=== PATIENT | female | born 1935 | race Caucasian/White ===

== ENCOUNTER 2017-07-21 16:23 | Inpatient (IN) | payer MEDICARE, SELFPAY ==
[2017-07-21] VITALS (9 sets, daily range): BP systolic 135–175; BP diastolic 58–120; PULSE 75–92; RESP 18–26; TEMP 27.7–37; O2SAT 82–98; BMI 43.2; BMI 41.9; BMI 41.1
--- NOTE | 2017-07-21 17:18 | PC.NURSE ---
Triage nurse called me to BS because of SPO2 86-89 w/o chronic lung disease, BP elevated and with positive flu A. Pt appears labored. Discussed possible differentials, [facility] guidelines and the need to transfer to ER. Pt agreeable. Report has already been called to Deborah. Bed 7 available.
[2017-07-21 17:19] LABS: UTC Influenza A Antigen Positive (Negative); UTC Influenza B Antigen Negative (Negative)
[2017-07-21 17:19] LABS: UTC Strep Screen (Rapid) Negative (Negative)
--- NOTE | 2017-07-21 17:21 | XR_ITS ---
XR chest portable COMPARISON: PA and lateral chest 01/27/2014 HISTORY: Chest pain, low oxygen saturation, cough TECHNIQUE: Portable upright chest FINDINGS: The patient is markedly obese however this is a fairly good inspiration and the lung woodson are grossly clear of infiltrate. There is gross generalized cardio megaly with biventricular enlargement with is no evidence of failure. IMPRESSION: Gross generalized cardiomegaly, there is a somewhat globular configuration to the cardiac silhouette raising the possibility of cardiomyopathy versus pericardial effusion and suggest clinical correlation.
--- NOTE | 2017-07-21 17:39 | HMH.EDGENADL ---
ED Disposition Clinical Impression: Influenza A, Hypoxia, Acute bronchospasm, Dehydration, Vomiting Disposition: Still a Patient Condition on Discharge: Fair Referrals: Guido Greer MD [Primary Care Provider] - - Critical Care Critical Care Time: Yes Attestation: On 07/21/17, the high probability of a clinically significant, sudden or life threatening deterioration of the following system(s) required my full and direct attention, intervention and personal management. The time I documented below is in addition to time spent performing reported procedures but includes the following listed in this critical care notation. Total Critical Care Time: 40 Vital system(s) involved:: Respiratory Failure My critical care processes included: Assessment & monitoring of V/S, Initial and Re-exams, Data Review/Interpretation, Coordinating Care, Medication Orders and management, Documentation Medical Decision Making Vital Signs: 07/21/17 17:08 07/21/17 17:29 07/21/17 17:32 Temperature 98.6 F 98.6 F 82 F L Temperature Source Oral Oral Oral Pulse Rate Pulse Rate [Right Brachial] 90 90 79 Respiratory Rate 20 26 H 24 Blood Pressure [Right Arm] 146/114 146/114 175/120 Blood Pressure Mean [Right Arm] 124 124 138 Blood Pressure Source [Right Arm] Automatic Cuff Automatic Cuff Automatic Cuff Blood Pressure Position [Right Arm] Sitting Sitting Sitting 02 Sat by Pulse Oximetry 86 L 86 L 82 L Oxygen Delivery Method Room Air Room Air Room Air 07/21/17 18:08 Temperature Temperature Source Pulse Rate 90 Pulse Rate [Right Brachial] Respiratory Rate Blood Pressure [Right Arm] Blood Pressure Mean [Right Arm] Blood Pressure Source [Right Arm] Blood Pressure Position [Right Arm] 02 Sat by Pulse Oximetry Oxygen Delivery Method - Lab Data Lab Results 07/21/17 16:54: Strep Scn Rapid Clinic Negative 07/21/17 17:07: Influenza Type A Ag Positive A, Influenza Type B Ag Negative 07/21/17 17:40: Sodium 142, Potassium 3.9, Chloride 105, Carbon Dioxide 31, Anion Gap 9.9, BUN 18, Creatinine 1.63 H, Estimated Creat Clear 26, Estimated GFR 30 L, Est GFR ( Amer) 37 L, Glucose 128 H, Calcium 8.7, Total Bilirubin 0.5, AST 15, ALT 14, Alkaline Phosphatase 78, Total Protein 6.3 L, Albumin 3.2 L, Globulin 3.1, Albumin/Globulin Ratio 1.0 L 07/21/17 17:40: Total Creatine Kinase 150, CK-MB (CK-2) < 0.5, CK-MB (CK-2) Rel Index 0.3, Troponin I < 0.02 07/21/17 17:40: WBC 3.5 L, RBC 3.84 L, Hgb 11.6 L, Hct 36.4 L, MCV 94.9, MCH 30.3, MCHC 31.9, RDW 14.4, Plt Count 174, MPV 8.6, Neut % (Auto) 77.5, Lymph % (Auto) 12.8, [place] % (Auto) 5.3, Eos % (Auto) 4.0, Baso % (Auto) 0.6, Neut # (Auto) 2.7, Lymph # (Auto) 0.4 L, [place] # (Auto) 0.2, Eos # (Auto) 0.1, Baso # (Auto) 0.0 Result diagrams: 07/21/17 17:40 07/21/17 17:40 Orders (Tests/Meds): ED MEDICATIONS Generic Name Dose Route Start Last Admin Trade Name Freq PRN Reason Stop Dose Admin Sodium Chloride 1,000 mls @ 100 mls/hr 07/21/17 18:30 Sod Chloride 0.9% 1000ml Bag IV 08/20/17 18:29 .Q10H [facility] Discontinued Medications Generic Name Dose Route Start Last Admin Trade Name Freq PRN Reason Stop Dose Admin Albuterol/Ipratropium 3 ml 07/21/17 18:08 07/21/17 18:12 Duoneb 3ml Neb IH 07/21/17 18:09 3 ml ONCE ONE Administration Ondansetron HCl 4 mg 07/21/17 18:16 Zofran 4mg/2ml Vial IV 07/21/17 18:17 ONCE ONE Oseltamivir Phosphate 75 mg 07/21/17 18:12 Tamiflu 75mg Capsule PO 07/21/17 18:13 ONCE ONE ORDERS Category Date Time Status Chest XR 2 view (NOT portable) [XR chest 2V] Stat Exams 07/21/17 17:51 Taken Lactic Acid Stat Lab 07/21/17 17:40 Ordered Blood Culture Stat Micro 07/21/17 17:40 Received Strep Screen Confirmation Stat Micro 07/21/17 16:54 Received Arterial Blood Gas Routine RT 07/21/17 17:49 Received Arterial Blood Gas Stat RT 07/21/17 17:40 Ordered - Radiology Data #1 Image(s): Chest
--- NOTE | 2017-07-21 17:51 | XR_ITS ---
XR chest 2V COMPARISON: PA and lateral chest 01/25/2014 HISTORY: Cough and congestion TECHNIQUE: PA and lateral chest FINDINGS: The lung woodson are well expanded and appear clear of infiltrate. There is minimal scarring or atelectasis at the left base. There is marked aortic tortuosity of the mid and lower thoracic aorta and this was noted previously but has shown interval progression from the previous study. There is borderline cardiomegaly without evidence of failure. There is no pleural fluid. IMPRESSION: Marked aortic tortuosity, is the patient hypertensive? No definite acute chest pathology noted
[2017-07-21 18:04] LABS: Basophils % 0.6 % (0.1-2.0); Eosinophils # 0.1 K/mm3 (0.0-0.4); Hematocrit 36.4 % (37.0-47.0); Hemoglobin 11.6 g/dL (12.2-16.2); Lymphocytes # 0.4 K/mm3 (0.7-4.5); Lymphocytes % 12.8 K/mm3 (10-50); Mean Corpuscular HGB Conc 31.9 g/dL (31.8-35.4); Mean Corpuscular Hemoglobin 30.3 pg (27.0-31.2); Mean Corpuscular Volume 94.9 fl (81-99); Mean Platelet Volume 8.6 fl (7.4-10.4); Monocytes # 0.2 K/mm3 (0.1-1.0); Monocytes % 5.3 % (1.7-9.3); Neutrophils # 2.7 K/mm3 (1.8-7.8); Neutrophils % 77.5 % (37.0-80.0); Platelet Count 174 K/mm3 (142-424); Red Blood Count 3.84 M/mm3 (4.20-5.40); Red Cell Distribution Width 14.4 % (11.5-17.5); White Blood Count 3.5 K/mm3 (4.8-10.8)
[2017-07-21 18:14] LABS: Alanine Aminotransferase 14 U/L (12-78); Albumin Level 3.2 gm/dL (3.4-5.0); Alkaline Phosphatase 78 U/L (46-116); Anion Gap 9.9 mEq/L (5-15); Aspartate Amino Transferase 15 U/L (15-37); Bilirubin,Total 0.5 mg/dL (0.2-1.0); Blood Urea Nitrogen 18 mg/dL (7-18); Calcium 8.7 mg/dL (8.5-10.1); Carbon Dioxide 31 mmol/L (21.0-32.0); Chloride 105 mmol/L (98-107); Creatinine Clearance Estimated 26 mL/min (0-300); Creatinine,Serum 1.63 mg/dL (0.55-1.02); Estimated Glomerular Filt Rate 30 ml/min (>60); GFR (African American) 37 ML/MIN (>60); Globulin 3.1 gm/dl (1.3-3.2); Glucose 128 mg/dL (74-106); Potassium 3.9 mmoL/L (3.5-5.1); Sodium 142 mmol/L (136-145); Total Protein,Serum 6.3 gm/dL (6.4-8.2)
[2017-07-21 18:31] LABS: CKMB Relative Index 0.3 U/L (0-4.0); Creatine Kinase 150 U/L (26-192); Creatine Kinase MB < 0.5 mg/ml (0.0-3.6); Troponin I < 0.02 ng/ml (0.00-0.06)
--- NOTE | 2017-07-21 20:42 | PC.NURSE ---
bp rechecked since it was high on admission
[2017-07-22] VITALS (8 sets, daily range): BP systolic 142–171; BP diastolic 71–88; PULSE 72–87; RESP 18–22; TEMP 36.3–36.7; O2SAT 90–94
--- NOTE | 2017-07-22 07:31 | PC.NURSE ---
RECIEVED REPORT FROM ANNE PETTY RN
[2017-07-22 07:51] LABS: Anion Gap 11.5 mEq/L (5-15); Blood Urea Nitrogen 20 mg/dL (7-18); Carbon Dioxide 30 mmol/L (21.0-32.0); Chloride 103 mmol/L (98-107); Creatinine Clearance Estimated 52 mL/min (0-300); Creatinine,Serum 1.59 mg/dL (0.55-1.02); Estimated Glomerular Filt Rate 31 ml/min (>60); GFR (African American) 38 ML/MIN (>60); Glucose 150 mg/dL (74-106); Potassium 4.5 mmoL/L (3.5-5.1); Sodium 140 mmol/L (136-145)
--- NOTE | 2017-07-22 09:06 | HMH.HP ---
*Admission Date: 07/21/17 *Chief complaint: Cough with shortness of breath *History of present illness: 81 year old female patient of [facility] presents to [facility] urgent treatment center yesterday with a several day history of cough, congestion, fever and chills and progressively worse shortness of breath. She had tried some OTC meds with minimal improvements in symptoms. During the day yesterday patient felt like her breathing was worse and also felt like she was wheezing. She has unknown sick contacts but believes she has the flu. [facility] History I have reviewed the patient's past medical history: Yes Medical History: Denies:: Cancer, Diabetes Mellitus Type 1, Diabetes Mellitus Type 2, MRSA Other Surgeries: Yes: No Previous Surgery Amputation: No Fractures: No - *Social History Smoking Status: Former smoker (Quit almost 20 years ago) Alcohol Intake: never - Psychiatric History Expresses thoughts of harming self/others: None Suicide Plan Description: No Plan *Family Hx:: No significant family history Review of Systems - Constitutional Reports body ache(s), Reports chills - Eyes Denies loss of vision - ENT Denies change in voice - *Cardiovascular Denies chest pain - *Gastrointestinal Reports nausea, Reports vomiting Comments: No diarrhea - *Genitourinary Comments: decreased urine output - *Musculoskeletal Denies joint pain - Integumentary/Breasts Denies rash - *Neurologic Reports weakness Meds Home Medications Medication Instructions Recorded Confirmed Type No Known Home Medications [No 07/21/17 07/21/17 History Known Home Medications] Allergies Allergy/AdvReac Type Severity Reaction Status Date / Time No Known Allergies Allergy Unverified 06/26/17 14:47 Exam Vital signs and Labs for Last 24 Hours: Vital Signs Temp Pulse Pulse Resp BP BP BP 07/22/17 08:00 97.4 F L 83 22 142/75 07/22/17 06:26 86 07/22/17 04:25 98.0 F 73 20 159/88 07/21/17 20:40 82 07/21/17 20:30 149/58 07/21/17 20:00 20 07/21/17 19:40 98.1 F 82 20 147/117 07/21/17 19:21 98.2 F 75 18 135/75 07/21/17 18:08 90 07/21/17 17:32 82 F L 79 24 175/120 07/21/17 17:29 98.6 F 90 26 H 146/114 07/21/17 17:08 98.6 F 90 20 146/114 Pulse Ox 07/22/17 08:00 90 L 07/22/17 06:26 07/22/17 04:25 94 L 07/21/17 20:40 90 L 07/21/17 20:30 07/21/17 20:00 91 L 07/21/17 19:40 91 L 07/21/17 19:21 07/21/17 18:08 07/21/17 17:32 82 L 07/21/17 17:29 86 L 07/21/17 17:08 86 L Intake and Output 07/21/17 07/22/17 07/22/17 19:59 03:59 11:59 Intake Total 1053 / 1053 Balance 1053 / 1053 Intake: Intake, Total IV Amount 1053 / 1053 Ringers Solution,Lactated 1,000 1053 / 1053 ml @ 100 mls/hr IV .Q10H [facility] Rx#:[id number] Other: Number of Unmeasured Voids 1 Weight 254 lb 7 oz Patient Weight 07/22/17 11:59 Weight 254 lb 7 oz - Constitutional no acute distress - *Routine HEENT Exam Head: Present: normocephalic ENT: Present: mucous membranes moist - *Routine Respiratory Exam Present: wheezes (expiratory) - *Routine Cardiovascular Exam Present: RRR - *Routine Abdominal Exam Present: soft, normoactive bowel sounds. Absent: tenderness - *Routine Extremities Exam Absent: edema - *Routine Skin Exam Present: intact. Absent: rash - *Routine Neurological Exam Present: alert, oriented X3. Absent: sensory deficit, motor deficit H&P: Result - Labs Labs: Laboratory Results - last 24 hr 07/21/17 16:54: Strep Scn Rapid Clinic Negative 07/21/17 17:07: Influenza Type A Ag Positive A, Influenza Type B Ag Negative 07/21/17 17:40: Sodium 142, Potassium 3.9, Chloride 105, Carbon Dioxide 31, Anion Gap 9.9, BUN 18, Creatinine 1.63 H, Estimated Creat Clear 26, Estimated GFR 30 L, Est GFR ( Amer) 37 L, Glucose 128 H, Ca
--- NOTE | 2017-07-22 09:11 | P.HP_ITS ---
*Admission Date: 07/21/17 *Chief complaint: Cough with shortness of breath *History of present illness: 81 year old female patient of [facility] presents to [facility] urgent treatment center yesterday with a several day history of cough, congestion, fever and chills and progressively worse shortness of breath. She had tried some OTC meds with minimal improvements in symptoms. During the day yesterday patient felt like her breathing was worse and also felt like she was wheezing. She has unknown sick contacts but believes she has the flu. [facility] History I have reviewed the patient's past medical history: Yes Medical History: Denies:: Cancer, Diabetes Mellitus Type 1, Diabetes Mellitus Type 2, MRSA Other Surgeries: Yes: No Previous Surgery Amputation: No Fractures: No - *Social History Smoking Status: Former smoker (Quit almost 20 years ago) Alcohol Intake: never - Psychiatric History Expresses thoughts of harming self/others: None Suicide Plan Description: No Plan *Family Hx:: No significant family history Review of Systems - Constitutional Reports body ache(s), Reports chills - Eyes Denies loss of vision - ENT Denies change in voice - *Cardiovascular Denies chest pain - *Gastrointestinal Reports nausea, Reports vomiting Comments: No diarrhea - *Genitourinary Comments: decreased urine output - *Musculoskeletal Denies joint pain - Integumentary/Breasts Denies rash - *Neurologic Reports weakness Meds Home Medications Medication Instructions Recorded Confirmed Type No Known Home Medications [No 07/21/17 07/21/17 History Known Home Medications] Allergies Allergy/AdvReac Type Severity Reaction Status Date / Time No Known Allergies Allergy Unverified 06/26/17 14:47 Exam Vital signs and Labs for Last 24 Hours: Vital Signs Temp Pulse Pulse Resp BP BP BP 07/22/17 08:00 97.4 F L 83 22 142/75 07/22/17 06:26 86 07/22/17 04:25 98.0 F 73 20 159/88 07/21/17 20:40 82 07/21/17 20:30 149/58 07/21/17 20:00 20 07/21/17 19:40 98.1 F 82 20 147/117 07/21/17 19:21 98.2 F 75 18 135/75 07/21/17 18:08 90 07/21/17 17:32 82 F L 79 24 175/120 07/21/17 17:29 98.6 F 90 26 H 146/114 07/21/17 17:08 98.6 F 90 20 146/114 Pulse Ox 07/22/17 08:00 90 L 07/22/17 06:26 07/22/17 04:25 94 L 07/21/17 20:40 90 L 07/21/17 20:30 07/21/17 20:00 91 L 07/21/17 19:40 91 L 07/21/17 19:21 07/21/17 18:08 07/21/17 17:32 82 L 07/21/17 17:29 86 L 07/21/17 17:08 86 L Intake and Output 07/21/17 07/22/17 07/22/17 19:59 03:59 11:59 Intake Total 1053 / 1053 Balance 1053 / 1053 Intake: Intake, Total IV Amount 1053 / 1053 Ringers Solution,Lactated 1,000 1053 / 1053 ml @ 100 mls/hr IV .Q10H [facility] Rx#:[id number] Other: Number of Unmeasured Voids 1 Weight 254 lb 7 oz Patient Weight 07/22/17 11:59 Weight 254 lb 7 oz - Constitutional no acute d
--- NOTE | 2017-07-22 15:19 | HMH.PHAVTE ---
[facility] Pharmacy VTE Monitoring - Patient Demographics Admission date: 07/22/17 Report Date: 07/22/17 Time: 15:19 Allergies/Adverse Reactions: No Known Allergies Allergy (Unverified 06/26/17 14:47) Height: 1.68 m Weight: 115.411 kg Patient Problems: Current Active Problems Influenza A (Acute) Hypoxia (Acute) Acute bronchospasm (Acute) Dehydration (Acute) Vomiting (Acute) - VTE Risk Labs: VTE Related Lab Results Hgb 11.6 g/dL (12.2-16.2) L 07/21/17 17:40 Hct 36.4 % (37.0-47.0) L 07/21/17 17:40 Plt Count 174 K/mm3 (142-424) 07/21/17 17:40 BUN 20 mg/dL (7-18) H 07/22/17 06:50 Creatinine 1.59 mg/dL (0.55-1.02) H 07/22/17 06:50 Estimated Creat Clear 52 mL/min (0-300) 07/22/17 06:50 Was VTE Risk Assessment Performed: Yes VTE Score: 4 VTE Risk Level: Low Risk - Prophylaxis VTE Prophylaxis Ordered?: Yes Types of VTE Prophylaxis: TEDS Knee High Location of Applied Device: Bilateral Lower Extremeties
--- NOTE | 2017-07-22 17:29 | PC.NURSE ---
PATIENT IS RESTING IN BED WITH FAMILY AT BEDSIDE. SHE HAS C/O HEADACHE OFF AND ON TODAY. STATES SHE IS BREATHING BETTER AND WE HAVE CURRENTLY WEANED HER O2 TO 1LNC. SHE AMBULATES TO THE BATHROOM WITH A STANDBY ASSIST BECAUSE OF THE IV POLE. LR IS RUNNING At 10OML/HR. HER TEDS ARE ON. LUNGS HAVE EXPIRATORY WHEEZES IN ALL LOBES. SHE REMAINS IN DROPLET ISOLATION FOR FLU A. PATIENT DENIES PAIN AT THIS TIME. CALL LIGHT WITHIN REACH WILL CONTINUE TO MONITOR.
--- NOTE | 2017-07-22 20:31 | PC.NURSE ---
rn aware of all vital signs
[2017-07-23] VITALS (10 sets, daily range): BP systolic 153–174; BP diastolic 77–90; PULSE 61–92; RESP 20–22; TEMP 36.4–36.9; O2SAT 86–96; BMI 40.8
--- NOTE | 2017-07-23 04:35 | PC.NURSE ---
PT HAS SLEPT INTERMITTENTLY. NO COMPLAINTS OF NAUSEA OR HEADACHE THIS SHIFT. STATES NO APPETITE. PT ON 2L PER NC.
--- NOTE | 2017-07-23 04:42 | PC.NURSE ---
rn aware of all vital signs
--- NOTE | 2017-07-23 07:00 | XR_ITS ---
XR chest 2V Ordering Physician: Michael Westfall MD Patient Age: 81 years: Female HISTORY: ITS.REASON: Hypoxia Hypoxia. Coughing.Patient on O2. TECHNIQUE: PA and lateral chest COMPARISON :07/21/2017 & 11/12/2013 CXR FINDINGS Right basilar infiltrate has become apparent and developed since prior study. Focal right lower lobe pneumonia partially obscured right hemidiaphragm. Right heart border remains intact Left lung base Progressive linear atelectasis at left lung base and left hemidiaphragm and left midlung.. Cannot exclude early developing infiltrate at the medial left base retrocardiac region. Ongoing follow-up be important. . The upper lung woodson appear clear Bilateral Cassi regions generous, upper normal but I believe stable since 2013 CXR mediastinal structures unremarkable . Tortuous aorta calcified aortic knob underlying mild hyperexpansion chronic changes likely present. Degenerative changes throughout the T-spine similar to previous studies. No pneumothorax. . Possible scant pleural effusion blunting posterior sulcus IMPRESSION: 1. RLL pneumonia. Moderate Right lower lobe pneumonia has become evident. Since 07/21/2017 CXR 2. Discoid atelectasis left lung base. Difficult to exclude trace early infiltrate medial left base Mild cardiomegaly.
[2017-07-23 07:10] LABS: Eosinophils % 0.2 % (0.1-12.0); Hematocrit 34.7 % (37.0-47.0); Hemoglobin 10.8 g/dL (12.2-16.2); Lymphocytes # 0.5 K/mm3 (0.7-4.5); Lymphocytes % 10.7 K/mm3 (10-50); Mean Corpuscular HGB Conc 31.2 g/dL (31.8-35.4); Mean Corpuscular Hemoglobin 29.4 pg (27.0-31.2); Mean Corpuscular Volume 94.3 fl (81-99); Mean Platelet Volume 9.1 fl (7.4-10.4); Monocytes # 0.1 K/mm3 (0.1-1.0); Monocytes % 3.1 % (1.7-9.3); Neutrophils # 3.9 K/mm3 (1.8-7.8); Platelet Count 197 K/mm3 (142-424); Red Blood Count 3.67 M/mm3 (4.20-5.40); Red Cell Distribution Width 14.3 % (11.5-17.5); White Blood Count 4.5 K/mm3 (4.8-10.8)
[2017-07-23 07:12] LABS: MANUAL DIFFERENTIAL MANUAL DIFFERENTIAL (MANUAL DIFF)
[2017-07-23 07:22] LABS: Anion Gap 10.6 mEq/L (5-15); Blood Urea Nitrogen 25 mg/dL (7-18); Carbon Dioxide 29 mmol/L (21.0-32.0); Chloride 105 mmol/L (98-107); Creatinine Clearance Estimated 56 mL/min (0-300); Creatinine,Serum 1.49 mg/dL (0.55-1.02); Estimated Glomerular Filt Rate 34 ml/min (>60); GFR (African American) 41 ML/MIN (>60); Glucose 137 mg/dL (74-106); Potassium 4.6 mmoL/L (3.5-5.1); Sodium 140 mmol/L (136-145)
--- NOTE | 2017-07-23 08:53 | P.PN_ITS ---
Internal Medicine - PN: Subj *Date: 07/23/17 *Time: 11:28 Interval history: Does not feel any better; slept little; coughing; eating and drinking poorly; nauseated with any small amount of PO intake; has been OOB to bathroom; bowels have not moved; denies pain Exam Vital signs and Labs for Last 24 Hours: Temp Pulse Resp BP Pulse Ox 97.6 F 92 H 22 153/78 90 L 07/23/17 08:14 07/23/17 08:14 07/23/17 08:14 07/23/17 08:14 07/23/17 08:14 Laboratory Results - last 24 hr 07/23/17 06:01: WBC 4.5 L D, RBC 3.67 L, Hgb 10.8 L, Hct 34.7 L, MCV 94.3, MCH 29.4, MCHC 31.2 L, RDW 14.3, Plt Count 197, MPV 9.1, Neut % (Auto) 86.0 H, Lymph % (Auto) 10.7, [place] % (Auto) 3.1, Eos % (Auto) 0.2, Baso % (Auto) 0.0 L, Neut # (Auto) 3.9, Lymph # (Auto) 0.5 L, [place] # (Auto) 0.1, Eos # (Auto) 0.0, Baso # (Auto) 0.0 07/23/17 06:01: Sodium 140, Potassium 4.6, Chloride 105, Carbon Dioxide 29, Anion Gap 10.6, BUN 25 H, Creatinine 1.49 H, Estimated Creat Clear 56, Estimated GFR 34 L, Est GFR ( Amer) 41 L, Glucose 137 H I & O for Last 24 hours: Intake & Output 07/20/17 07/21/17 07/22/17 07/23/17 11:59 11:59 11:59 11:59 Intake Total 120 / 1173 3621 / 3621 Balance 120 / 973 3621 / 3621 Weight 254 lb 7 oz - Constitutional no acute distress Comments: sitting on bedside; daughter at bedside - *Routine Respiratory Exam Comments: bilateral basilar crackles; coughing with deep inspiration Assessment and Plan - Assessment and plan all Dx Assessment and Plan for all problems:: will add a PPI Patient seen and agree with above note.
[2017-07-23 09:08] LABS: Lymphocytes % 10 % (10-50); Monocytes % 4 % (2-9); Neutrophils % 85 % (42-76); Total Cells Counted 100
[2017-07-23 09:09] LABS: Platelet Estimate Normal
[2017-07-23 10:40] LABS: ABG Base Excess 2.5 mmol/L (-2.4-2.3); ABG HCO3 27.5 mmhg (22.0-26.0); ABG Oxygen Saturation 96 % (90-100); ABG PCO2 46.6 mmhg (35.0-45.0); ABG PH 7.39 mmol/L (7.35-7.45); ABG PO2 82.1 mmhg (80-100); ABG TCO2 28.9 mmhg (23-27)
[2017-07-23 10:41] LABS: Oxygen 2.5LPM %
[2017-07-23 10:42] LABS: Allen's Test Acceptable; Source Left Radial
--- NOTE | 2017-07-23 18:03 | PC.NURSE ---
Resting in bed. Complaint of a headache and nausea. PRN order for ibuprofen and zofran given and tolerated this well. States that she is cold. Warm blanket applied. No sign or symptom of distress noted at this time. Family at bedside.
--- NOTE | 2017-07-23 19:43 | PC.NURSE ---
Report given to SavanahRN
[2017-07-24] VITALS (10 sets, daily range): BP systolic 106–141; BP diastolic 57–88; PULSE 65–89; RESP 20–67; TEMP 36.3–37; O2SAT 89–95
--- NOTE | 2017-07-24 03:02 | PC.NURSE ---
LAYING IN BED RESTING AT THIS THIS TIME. FAMILY IS AT BEDSIDE. HAS BILAT WHEEZES RESP EVEN AND LABORED AT TIMES.. HAS SOA WHEN AMBULATING TO RESTROOM. GAVE PHENERGAN FOR NAUSEA DUE TO COUGH. HELPED BOTH. CHANGED IV TUBING AND DATED. STATES HAS NO NEEDS. BED LOCKED IN LOW POSITION, SIDE RALES UP X 2. WILL CONTINUE TO MONITOR. CALL HERNANDEZ IN REACH.
[2017-07-24 06:52] LABS: Basophils % 0.2 % (0.1-2.0); Eosinophils % 0.3 % (0.1-12.0); Hematocrit 34.4 % (37.0-47.0); Lymphocytes # 0.5 K/mm3 (0.7-4.5); Lymphocytes % 8.4 K/mm3 (10-50); Mean Corpuscular HGB Conc 31.8 g/dL (31.8-35.4); Mean Corpuscular Hemoglobin 29.9 pg (27.0-31.2); Mean Corpuscular Volume 93.8 fl (81-99); Mean Platelet Volume 9.7 fl (7.4-10.4); Monocytes # 0.2 K/mm3 (0.1-1.0); Monocytes % 3.5 % (1.7-9.3); Neutrophils # 5.2 K/mm3 (1.8-7.8); Neutrophils % 87.6 % (37.0-80.0); Platelet Count 192 K/mm3 (142-424); Red Blood Count 3.67 M/mm3 (4.20-5.40); Red Cell Distribution Width 14.4 % (11.5-17.5); White Blood Count 5.9 K/mm3 (4.8-10.8)
[2017-07-24 06:55] LABS: Anion Gap 12.3 mEq/L (5-15); Blood Urea Nitrogen 30 mg/dL (7-18); Carbon Dioxide 27 mmol/L (21.0-32.0); Chloride 103 mmol/L (98-107); Creatinine Clearance Estimated 46 mL/min (0-300); Creatinine,Serum 1.82 mg/dL (0.55-1.02); Estimated Glomerular Filt Rate 27 ml/min (>60); GFR (African American) 32 ML/MIN (>60); Glucose 134 mg/dL (74-106); Potassium 4.3 mmoL/L (3.5-5.1); Sodium 138 mmol/L (136-145)
[2017-07-24 06:58] LABS: MANUAL DIFFERENTIAL MANUAL DIFFERENTIAL (MANUAL DIFF)
--- NOTE | 2017-07-24 07:31 | PC.NURSE ---
REPORT GIVEN TO Teresa BARBA
--- NOTE | 2017-07-24 08:14 | HMH.ACPN ---
Internal Medicine - PN: Subj *Date: 07/24/17 *Time: 08:57 Interval history: O2 sats decreased and has been placed on jacob mask now at 50%; states she feels weak; would like for extra tubing so that she can go to the bathroom and sit in a chair; would feel better on her back; + SOB; + cough; voiding; no stools since admission; + nausea, no vomiting; eating little. Received dose of Lasix and IVF decreased yesterday. Exam Vital signs and Labs for Last 24 Hours: Temp Pulse Resp BP Pulse Ox 98.6 F 78 20 106/61 89 L 07/24/17 07:43 07/24/17 07:43 07/24/17 07:43 07/24/17 07:43 07/24/17 06:29 Laboratory Results - last 24 hr 07/23/17 06:01: Total Counted 100, Neutrophils % (Manual) 85 H, Lymphocytes % (Manual) 10, Atypical Lymphs % 1.0, Monocytes % (Manual) 4, Platelet Estimate Normal 07/24/17 06:30: WBC 5.9 D, RBC 3.67 L, Hgb 11.0 L, Hct 34.4 L, MCV 93.8, MCH 29.9, MCHC 31.8, RDW 14.4, Plt Count 192, MPV 9.7, Neut % (Auto) 87.6 H, Lymph % (Auto) 8.4 L, [place] % (Auto) 3.5, Eos % (Auto) 0.3, Baso % (Auto) 0.2, Neut # (Auto) 5.2, Lymph # (Auto) 0.5 L, [place] # (Auto) 0.2, Eos # (Auto) 0.0, Baso # (Auto) 0.0 07/24/17 06:30: Sodium 138, Potassium 4.3, Chloride 103, Carbon Dioxide 27, Anion Gap 12.3, BUN 30 H, Creatinine 1.82 H D, Estimated Creat Clear 46, Estimated GFR 27 L, Est GFR ( Amer) 32 L D, Glucose 134 H I & O for Last 24 hours: Intake & Output 07/21/17 07/22/17 07/23/17 07/24/17 11:59 11:59 11:59 11:59 Intake Total 120 / 1173 3621 / 3621 2691 / 2691 Output Total 500 / 500 Balance 120 / 973 3621 / 3621 2191 / 2191 Weight 254 lb 7 oz 254 lb 7.003 oz Radiology Reports for the Last 24 Hours: 07/23/17 CXR IMPRESSION: 1. RLL pneumonia. Moderate Right lower lobe pneumonia has become evident. Since 07/21/2017 CXR 2. Discoid atelectasis left lung base. Difficult to exclude trace early infiltrate medial left base Mild cardiomegaly. - Constitutional no acute distress Comments: eyes are brighter today - *Routine Respiratory Exam Present: accessory muscle use Comments: bilateral crackles to mid lung woodson - *Routine Cardiovascular Exam Present: RRR - *Routine Abdominal Exam Present: soft, normoactive bowel sounds. Absent: tenderness, guarding - *Routine Extremities Exam Comments: NERY hose on - *Routine Neurological Exam Present: alert, oriented X3 Assessment and Plan (1) Pneumonia Current visit: Yes Status: Acute Category: Medical Code(s): J18.9 - Pneumonia, unspecified organism - Assessment and plan all Dx Assessment and Plan for all problems:: Has been started on ABX's; will get sputum specimen; continue with nebs; wean down O2; Yolanda will get O2 extension. Patient seen and agree with above note - BTM
--- NOTE | 2017-07-24 08:17 | P.PN_ITS ---
Internal Medicine - PN: Subj *Date: 07/24/17 *Time: 08:57 Interval history: O2 sats decreased and has been placed on jacob mask now at 50%; states she feels weak; would like for extra tubing so that she can go to the bathroom and sit in a chair; would feel better on her back; + SOB; + cough; voiding; no stools since admission; + nausea, no vomiting; eating little. Received dose of Lasix and IVF decreased yesterday. Exam Vital signs and Labs for Last 24 Hours: Temp Pulse Resp BP Pulse Ox 98.6 F 78 20 106/61 89 L 07/24/17 07:43 07/24/17 07:43 07/24/17 07:43 07/24/17 07:43 07/24/17 06:29 Laboratory Results - last 24 hr 07/23/17 06:01: Total Counted 100, Neutrophils % (Manual) 85 H, Lymphocytes % ( Manual) 10, Atypical Lymphs % 1.0, Monocytes % (Manual) 4, Platelet Estimate Normal 07/24/17 06:30: WBC 5.9 D, RBC 3.67 L, Hgb 11.0 L, Hct 34.4 L, MCV 93.8, MCH 29.9, MCHC 31.8, RDW 14.4, Plt Count 192, MPV 9.7, Neut % (Auto) 87.6 H, Lymph % (Auto) 8.4 L, [place] % (Auto) 3.5, Eos % (Auto) 0.3, Baso % (Auto) 0.2, Neut # ( Auto) 5.2, Lymph # (Auto) 0.5 L, [place] # (Auto) 0.2, Eos # (Auto) 0.0, Baso # ( Auto) 0.0 07/24/17 06:30: Sodium 138, Potassium 4.3, Chloride 103, Carbon Dioxide 27, Anion Gap 12.3, BUN 30 H, Creatinine 1.82 H D, Estimated Creat Clear 46, Estimated GFR 27 L, Est GFR ( Amer) 32 L D, Glucose 134 H I & O for Last 24 hours: Intake & Output 07/21/17 07/22/17 07/23/17 07/24/17 11:59 11:59 11:59 11:59 Intake Total 120 / 1173 3621 / 3621 2691 / 2691 Output Total 500 / 500 Balance 120 / 973 3621 / 3621 2191 / 2191 Weight 254 lb 7 oz 254 lb 7.003 oz Radiology Reports for the Last 24 Hours: 07/23/17 CXR IMPRESSION: 1. RLL pneumonia. Moderate Right lower lobe pneumonia has become evident. Since 07/21/2017 CXR 2. Discoid atelectasis left lung base. Difficult to exclude trace early infiltrate medial left base Mild cardiomegaly. - Constitutional no acute distress Comments: eyes are brighter today - *Routine Respiratory Exam Present: accessory muscle use Comments: bilateral crackles to mid lung woodson - *Routine Cardiovascular Exam Present: RRR - *Routine Abdominal Exam Present: soft, normoactive bowel sounds. Absent: tenderness, guarding - *Routine Extremities Exam Comments: NERY hose on - *Routine Neurological Exam Present: alert, oriented X3 Assessment and Plan (1) Pneumonia Current visit: Yes Status: Acute Category: Medical Code(s): J18.9 - Pneumonia, unspecified organism - Assessment and plan all Dx Assessment and Plan for all problems:: Has been started on ABX's; will get sputum specimen; continue with nebs; wean down O2; Yolanda will get O2 extension. Patient seen and agree with above note - BTM
[2017-07-24 09:02] LABS: Mycoplasma Pneumo IGM (Rapid) Non-Reactive (Non-Reactiv)
[2017-07-24 11:43] LABS: Lymphocytes % 16 % (10-50); Monocytes % 12 % (2-9); Neutrophils % 67 % (42-76); Platelet Estimate Slight Decrease; Total Cells Counted 100
[2017-07-24 11:44] LABS: RBC Morphology Normal
--- NOTE | 2017-07-24 17:22 | PC.NURSE ---
pt has had shortness of air with exertion. lungs have scattered wheezes. pt has ambulated to bathroom throughout day. venti mask still on and sat is lower 90's. no complaints from pt. call light in reach. bed in lowest position. nonskids on. will continue to monitor pt condition.
--- NOTE | 2017-07-24 18:52 | PC.NURSE ---
report to be given to erick kohler rn
[2017-07-25] VITALS (15 sets, daily range): BP systolic 136–155; BP diastolic 80–106; PULSE 57–88; RESP 20–22; TEMP 36.4–37.7; O2SAT 90–94
--- NOTE | 2017-07-25 03:46 | PC.NURSE ---
PT RESTED WELL THIS SHIFT, DENIED PAIN OR DISCOMFORT. PT WEANED TO 3.5L NC, TOLERATING WELL WITH SATS IN LOW TO MID 90S. WHEEZES NOTED DURING LUNG AUSCULTATION. PT CONTINUES TO HAVE NON-PRODUCTIVE COUGH. BS ACTIVE IN ALL 4 QAUDS. PT AMBULATING TO BR WITH STAND BY ASSIST. VSS. A&OX3. NO DISTRESS NOTED. WILL CONTINUE TO MONITOR.
--- NOTE | 2017-07-25 04:27 | PC.NURSE ---
NURSE NOTIFIED OF TPS ELEVATED BP
--- NOTE | 2017-07-25 06:45 | PC.NURSE ---
PT REFUSED A BATH. PT WANTS A BATH AFTER BREAKFAST. NURSE NOTIFIED
--- NOTE | 2017-07-25 07:25 | PC.NURSE ---
REPORT GIVEN TO Kori BARBA
--- NOTE | 2017-07-25 07:30 | PC.NURSE ---
REPORT GIVEN TO Teresa CLEMENT
--- NOTE | 2017-07-25 07:59 | HMH.ACPN ---
Internal Medicine - PN: Subj *Date: 07/25/17 *Time: 08:45 Interval history: Thinks she feels better; breathing feels better to her; denies CP; slept some; eating very little; no nause after eating now; bowels have not moved; up to chair yesterday and tolerated well. On O2 per NC now. Exam Vital signs and Labs for Last 24 Hours: Temp Pulse Resp BP Pulse Ox 98.2 F 62 20 139/96 90 L 07/25/17 04:00 07/25/17 06:07 07/25/17 04:00 07/25/17 04:00 07/25/17 06:07 Laboratory Results - last 24 hr 07/24/17 06:30: Mycoplasma pneumon IgM Non-reactive 07/24/17 06:30: Total Counted 100, Neutrophils % (Manual) 67, Band Neutrophils % 2.0, Lymphocytes % (Manual) 16, Monocytes % (Manual) 12 H, Metamyelocytes % 3.0 H, Platelet Estimate Slight decrease, RBC Morphology Normal I & O for Last 24 hours: Intake & Output 07/22/17 07/23/17 07/24/17 07/25/17 11:59 11:59 11:59 11:59 Intake Total 120 / 1173 3621 / 3621 2691 / 2691 2552 / 2552 Output Total 500 / 500 Balance 120 / 973 3621 / 3621 2191 / 2191 2552 / 2552 Weight 254 lb 7 oz 254 lb 7.003 oz - Constitutional no acute distress Comments: lying in bed and apears comfortable - *Routine Respiratory Exam Present: accessory muscle use Comments: dyspnea with talking; bilateral crackles and wheezes > on the right - *Routine Cardiovascular Exam Present: RRR - *Routine Abdominal Exam Present: soft, normoactive bowel sounds. Absent: tenderness - *Routine Extremities Exam Absent: edema Comments: NERY walsh on - *Routine Neurological Exam Present: alert, oriented X3 Assessment and Plan (1) Pneumonia Current visit: Yes Status: Acute Category: Medical Code(s): J18.9 - Pneumonia, unspecified organism (2) Acute bronchospasm Current visit: Yes Status: Acute Category: Medical Code(s): J98.01 - Acute bronchospasm (3) Dehydration Current visit: Yes Status: Resolved Category: Medical Code(s): E86.0 - Dehydration (4) Hypoxia Current visit: Yes Status: Acute Category: Medical Code(s): R09.02 - Hypoxemia (5) Influenza A Current visit: Yes Status: Resolved Category: Medical Code(s): J10.1 - Influenza due to other identified influenza virus with other respiratory manifestations - Assessment and plan all Dx Assessment and Plan for all problems:: continue with current TX; saline lock; MOM Patient seen and agree with above note - BTM
--- NOTE | 2017-07-25 15:18 | DIET.NUTRFU ---
Pt reports continued nausea with meals, difficulty eating foods due to edentulous state, she left her dentures at home. Pt has been assisted in menu selections and dietary will continue to honor any food requests.
[2017-07-26] VITALS (7 sets, daily range): BP systolic 115–186; BP diastolic 69–104; PULSE 75–97; RESP 18–24; TEMP 36.2–36.7; O2SAT 90–95
--- NOTE | 2017-07-26 02:34 | PC.NURSE ---
no changes noted from previous assessment, pt has rested intervals this shift, sleep is interrupted by cough, cough was only relieved briefly with medication, pt O2 sats remain above 90 on 2 l NC, vss, crackles noted to the bilateral bases with scattered wheezing, bowel sounds are active, pt is SOA when talking or going to and from restroom, bowel sounds active, no acute distress noted at this time, call light within reach, will continue to monitor.
--- NOTE | 2017-07-26 08:25 | HMH.ACPN2 ---
<Leigh Felix - Last Filed: 07/26/17 08:25> Internal Medicine - PN: Subj *Date: 07/26/17 *Time: 08:25 Interval history: Pt states she is feeling better today. Now on nasal oxygen at 2L. Still gets SOA with exertion. Denies any pain other than in her abdomen from continued coughing. Slept better last night and ate breakfast this morning. Exam Vital signs and Labs for Last 24 Hours: Temp Pulse Resp BP Pulse Ox 97.2 F L 79 18 130/92 94 L 07/26/17 00:24 07/26/17 06:48 07/26/17 00:24 07/26/17 00:24 07/26/17 06:48 Lab Results 07/21/17 16:54: Strep Scn Rapid [facility] Negative 07/21/17 17:07: Influenza Type A Ag Positive A, Influenza Type B Ag Negative 07/21/17 17:40: Sodium 142, Potassium 3.9, Chloride 105, Carbon Dioxide 31, Anion Gap 9.9, BUN 18, Creatinine 1.63 H, Estimated Creat Clear 26, Estimated GFR 30 L, Est GFR ( Amer) 37 L, Glucose 128 H, Calcium 8.7, Total Bilirubin 0.5, AST 15, ALT 14, Alkaline Phosphatase 78, Total Protein 6.3 L, Albumin 3.2 L, Globulin 3.1, Albumin/Globulin Ratio 1.0 L 07/21/17 17:40: Total Creatine Kinase 150, CK-MB (CK-2) < 0.5, CK-MB (CK-2) Rel Index 0.3, Troponin I < 0.02 07/21/17 17:40: WBC 3.5 L, RBC 3.84 L, Hgb 11.6 L, Hct 36.4 L, MCV 94.9, MCH 30.3, MCHC 31.9, RDW 14.4, Plt Count 174, MPV 8.6, Neut % (Auto) 77.5, Lymph % (Auto) 12.8, [place] % (Auto) 5.3, Eos % (Auto) 4.0, Baso % (Auto) 0.6, Neut # (Auto) 2.7, Lymph # (Auto) 0.4 L, [place] # (Auto) 0.2, Eos # (Auto) 0.1, Baso # (Auto) 0.0 07/21/17 17:45: Specimen Source Left radial, O2 % 2.5lpm, ABG pH 7.39, ABG pCO2 46.6 H, ABG pO2 82.1, ABG HCO3 27.5 H, ABG Total CO2 28.9 H, ABG O2 Saturation 96, ABG Base Excess 2.5 H, Sanket Test Acceptable 07/22/17 06:50: Sodium 140, Potassium 4.5, Chloride 103, Carbon Dioxide 30, Anion Gap 11.5, BUN 20 H, Creatinine 1.59 H, Estimated Creat Clear 52, Estimated GFR 31 L, Est GFR ( Amer) 38 L, Glucose 150 H 07/23/17 06:01: WBC 4.5 L D, RBC 3.67 L, Hgb 10.8 L, Hct 34.7 L, MCV 94.3, MCH 29.4, MCHC 31.2 L, RDW 14.3, Plt Count 197, MPV 9.1, Neut % (Auto) 86.0 H, Lymph % (Auto) 10.7, [place] % (Auto) 3.1, Eos % (Auto) 0.2, Baso % (Auto) 0.0 L, Neut # (Auto) 3.9, Lymph # (Auto) 0.5 L, [place] # (Auto) 0.1, Eos # (Auto) 0.0, Baso # (Auto) 0.0, Total Counted 100, Neutrophils % (Manual) 85 H, Lymphocytes % (Manual) 10, Atypical Lymphs % 1.0, Monocytes % (Manual) 4, Platelet Estimate Normal 07/23/17 06:01: Sodium 140, Potassium 4.6, Chloride 105, Carbon Dioxide 29, Anion Gap 10.6, BUN 25 H, Creatinine 1.49 H, Estimated Creat Clear 56, Estimated GFR 34 L, Est GFR ( Amer) 41 L, Glucose 137 H 07/24/17 06:30: Mycoplasma pneumon IgM Non-reactive 07/24/17 06:30: WBC 5.9 D, RBC 3.67 L, Hgb 11.0 L, Hct 34.4 L, MCV 93.8, MCH 29.9, MCHC 31.8, RDW 14.4, Plt Count 192, MPV 9.7, Neut % (Auto) 87.6 H, Lymph % (Auto) 8.4 L, [place] % (Auto) 3.5, Eos % (Auto) 0.3, Baso % (Auto) 0.2, Neut # (Auto) 5.2, Lymph # (Auto) 0.5 L, [place] # (Auto) 0.2, Eos # (Auto) 0.0, Baso # (Auto) 0.0, Total Counted 100, Neutrophils % (Manual) 67, Band Neutrophils % 2.0, Lymphocytes % (Manual) 16, Monocytes % (Manual) 12 H, Metamyelocytes % 3.0 H, Platelet Estimate Slight decrease, RBC Morphology Normal 07/24/17 06:30: Sodium 138, Potassium 4.3, Chloride 103, Carbon Dioxide 27, Anion Gap 12.3, BUN 30 H, Creatinine 1.82 H D, Estimated Creat Clear 46, Estimated GFR 27 L, Est GFR ( Amer) 32 L D, Glucose 134 H Microbiology Results 07/21/17 17:40 Blood Blood Culture - Preliminary NO GROWTH AFTER 4 DAYS 07/21/17 17:40 Blood Blood Culture - Preliminary NO GROWTH AFTER 4 DAYS 07/25/17 15:47 Sputum - Expectorated Sputum Gram Stain - Final 07/21/17 16:54 Throat Group A Streptococcus Screen (EVELINA) - Final I & O for Last 24 hours: Intake & Output 07/23/17 07/24/17 07/25/17 07/26/17 11:59 11:59 11:59 11:59 Intake Total 3621 / 3621 2691 / 2691 3092 / 3092 1260 / 1260 Output Total 500 /
--- NOTE | 2017-07-26 08:28 | P.PN_ITS ---
<Leigh Felix - Last Filed: 07/26/17 08:25> Internal Medicine - PN: Subj *Date: 07/26/17 *Time: 08:25 Interval history: Pt states she is feeling better today. Now on nasal oxygen at 2L. Still gets SOA with exertion. Denies any pain other than in her abdomen from continued coughing. Slept better last night and ate breakfast this morning. Exam Vital signs and Labs for Last 24 Hours: Temp Pulse Resp BP Pulse Ox 97.2 F L 79 18 130/92 94 L 07/26/17 00:24 07/26/17 06:48 07/26/17 00:24 07/26/17 00:24 07/26/17 06:48 Lab Results 07/21/17 16:54: Strep Scn Rapid Clinic Negative 07/21/17 17:07: Influenza Type A Ag Positive A, Influenza Type B Ag Negative 07/21/17 17:40: Sodium 142, Potassium 3.9, Chloride 105, Carbon Dioxide 31, Anion Gap 9.9, BUN 18, Creatinine 1.63 H, Estimated Creat Clear 26, Estimated GFR 30 L, Est GFR ( Amer) 37 L, Glucose 128 H, Calcium 8.7, Total Bilirubin 0.5, AST 15, ALT 14, Alkaline Phosphatase 78, Total Protein 6.3 L, Albumin 3.2 L, Globulin 3.1, Albumin/Globulin Ratio 1.0 L 07/21/17 17:40: Total Creatine Kinase 150, CK-MB (CK-2) < 0.5, CK-MB (CK-2) Rel Index 0.3, Troponin I < 0.02 07/21/17 17:40: WBC 3.5 L, RBC 3.84 L, Hgb 11.6 L, Hct 36.4 L, MCV 94.9, MCH 30.3, MCHC 31.9, RDW 14.4, Plt Count 174, MPV 8.6, Neut % (Auto) 77.5, Lymph % ( Auto) 12.8, [place] % (Auto) 5.3, Eos % (Auto) 4.0, Baso % (Auto) 0.6, Neut # (Auto ) 2.7, Lymph # (Auto) 0.4 L, [place] # (Auto) 0.2, Eos # (Auto) 0.1, Baso # (Auto) 0.0 07/21/17 17:45: Specimen Source Left radial, O2 % 2.5lpm, ABG pH 7.39, ABG pCO2 46.6 H, ABG pO2 82.1, ABG HCO3 27.5 H, ABG Total CO2 28.9 H, ABG O2 Saturation 96, ABG Base Excess 2.5 H, Sanket Test Acceptable 07/22/17 06:50: Sodium 140, Potassium 4.5, Chloride 103, Carbon Dioxide 30, Anion Gap 11.5, BUN 20 H, Creatinine 1.59 H, Estimated Creat Clear 52, Estimated GFR 31 L, Est GFR ( Amer) 38 L, Glucose 150 H 07/23/17 06:01: WBC 4.5 L D, RBC 3.67 L, Hgb 10.8 L, Hct 34.7 L, MCV 94.3, MCH 29.4, MCHC 31.2 L, RDW 14.3, Plt Count 197, MPV 9.1, Neut % (Auto) 86.0 H, Lymph % (Auto) 10.7, [place] % (Auto) 3.1, Eos % (Auto) 0.2, Baso % (Auto) 0.0 L, Neut # (Auto) 3.9, Lymph # (Auto) 0.5 L, [place] # (Auto) 0.1, Eos # (Auto) 0.0, Baso # (Auto) 0.0, Total Counted 100, Neutrophils % (Manual) 85 H, Lymphocytes % (Manual) 10, Atypical Lymphs % 1.0, Monocytes % (Manual) 4, Platelet Estimate Normal 07/23/17 06:01: Sodium 140, Potassium 4.6, Chloride 105, Carbon Dioxide 29, Anion Gap 10.6, BUN 25 H, Creatinine 1.49 H, Estimated Creat Clear 56, Estimated GFR 34 L, Est GFR ( Amer) 41 L, Glucose 137 H 07/24/17 06:30: Mycoplasma pneumon IgM Non-reactive 07/24/17 06:30: WBC 5.9 D, RBC 3.67 L, Hgb 11.0 L, Hct 34.4 L, MCV 93.8, MCH 29.9, MCHC 31.8, RDW 14.4, Plt Count 192, MPV 9.7, Neut % (Auto) 87.6 H, Lymph % (Auto) 8.4 L, [place] % (Auto) 3.5, Eos % (Auto) 0.3, Baso % (Auto) 0.2, Neut # ( Auto) 5.2, Lymph # (Auto) 0.5 L, [place] # (Auto) 0.2, Eos # (Auto) 0.0, Baso # ( Auto) 0.0, Total Counted 100, Neutrophils % (Manual) 67, Band Neutrophils % 2.0 , Lymphocytes % (Manual) 16, Monocytes % (Manual) 12 H, Metamyelocytes % 3.0 H, Platelet Estimate Slight decrease, RBC Morphology Normal 07/24/17 06:30: Sodium 138, Potassium 4.3, Chloride 103, Carbon Dioxide 27, Anion Gap 12.3, BUN 30 H, Creatinine 1.82 H D, Estimated Creat Clear 46, Estimated GFR 27 L, Est GFR ( Amer) 32 L D, Glucose 134 H Microbiology Results 07/21/17 17:40 Blood Blood Culture - Preliminary NO GROWTH AFTER 4 DAYS 07/21/17 17:40 Blood Blood Culture - Preliminary NO GROWTH AFTER 4 DAYS 07/25/17 15:47 Sputum
[2017-07-27] VITALS (8 sets, daily range): BP systolic 140–207; BP diastolic 90–124; PULSE 82–99; RESP 22–26; TEMP 36.4–36.8; O2SAT 90–93
--- NOTE | 2017-07-27 06:29 | PC.NURSE ---
PATIENTS IV IN RUE HAD INFILTRATED AND WAS REMOVED AT [facility]OX, 1999. 2 ATTEMPTS WERE MADE BY THIS NURSE TO RESTART AND BOTH WERE UNSUCCESSFULL. Gloria ZHONG R.N. WAS ABLE TO START A #22 G. IN LFA WITH 1 ATTEMPT. IV IS EASILY FLUSHED, HAS GOOD BLOOD RETURN AND IS FREE FROM S/S OF INFLAMMATION OR INFECTION. LAST EVENING @1620 PATIENTS B/P WAS 186/96 @ 2000 [facility] REPORTED A B/P OF 185/104, PATIENT HAD JUST RECEIVED SOLU-MEDROL AND BREATHING TX. NO C/O FROM PT ABOUT PAIN, HEADACHE ETC. CHECKED AGAIN AT 0400 B/P WAS 207/104. AT 0500 PAGED MD NEON TUBE PUMPER FOR DILEEP, DR. PEREZ RETURNED CALL AT 0504 AND ORDERED ONE TIME OF AMLOPIDINE 2.5 MG P.O. aT 0600 PATENTS B/P WAS 206/122 IN LEFT ARM AND 213/133 IN RIGHT PER DATASCOPE. MANUALLY B/P WAS 214/122. PATIENT STILL DENIES ANY PAIN. 0645 PLACED ANOTHER CALL TO MD DUE TO INCREASING B/P, PATIENT IS STATING SHE HAS A SLIGHT HEADACHE NOTHING UNBEARABLE B/P TAKEN @ 0700, 200/110 IN LEFT ARM. WAITING ON RETURN CALL FROM .
--- NOTE | 2017-07-27 09:03 | HMH.ACPN2 ---
Internal Medicine - PN: Subj *Date: 07/27/17 *Time: 09:03 Interval history: Patient with no new complaints today. Nursing staff reported elevated BP overnight. Exam Vital signs and Labs for Last 24 Hours: Temp Pulse Resp BP Pulse Ox 98.0 F 94 H 26 H 176/105 90 L 07/27/17 08:00 07/27/17 08:00 07/27/17 08:00 07/27/17 08:00 07/27/17 08:00 Vital Signs Temp Pulse Pulse Resp BP Pulse Ox 07/27/17 08:00 98.0 F 94 H 26 H 176/105 90 L 07/27/17 06:32 86 07/27/17 04:00 97.6 F 82 22 207/124 90 L 07/27/17 00:45 94 H 92 L 07/26/17 20:00 97.5 F L 84 22 185/104 90 L 07/26/17 17:07 76 07/26/17 16:20 97.8 F 75 20 186/96 94 L Intake and Output 07/26/17 07/27/17 07/27/17 19:59 03:59 11:59 Intake Total 600 / 600 480 / 480 Balance 600 / 600 480 / 480 Intake: Intake, Oral Amount 600 / 600 480 / 480 Other: Number of Unmeasured Voids 3 I & O for Last 24 hours: Intake & Output 07/24/17 07/25/17 07/26/17 07/27/17 11:59 11:59 11:59 11:59 Intake Total 2691 / 2691 3092 / 3092 1500 / 1500 1080 / 1080 Output Total 500 / 500 Balance 2191 / 2191 3092 / 3092 1500 / 1500 1080 / 1080 Weight 254 lb 7.003 oz - Constitutional no acute distress - *Routine Respiratory Exam Present: crackles (bibasilar, right more than left) - *Routine Cardiovascular Exam Present: RRR Assessment and Plan (1) Pneumonia Current visit: Yes Status: Acute Category: Medical Code(s): J18.9 - Pneumonia, unspecified organism (2) Acute bronchospasm Current visit: Yes Status: Acute Category: Medical Code(s): J98.01 - Acute bronchospasm (3) Dehydration Current visit: Yes Status: Resolved Category: Medical Code(s): E86.0 - Dehydration (4) Hypoxia Current visit: Yes Status: Acute Category: Medical Code(s): R09.02 - Hypoxemia (5) Influenza A Current visit: Yes Status: Resolved Category: Medical Code(s): J10.1 - Influenza due to other identified influenza virus with other respiratory manifestations (6) HTN (hypertension) Current visit: Yes Status: Acute Qualifiers: Hypertension type: essential hypertension Qualified Code(s): I10 - Essential (primary) hypertension Category: Medical Code(s): I10 - Essential (primary) hypertension - Assessment and plan all Dx Assessment and Plan for all problems:: Continue current treatment, add scheduled BP meds today.
--- NOTE | 2017-07-27 17:05 | DIET.NUTRFU ---
Pt with an improved appetite. Po intake 80% average at last three meals. Pt with no complaints or questions at this time. WIll continue to monitor.
--- NOTE | 2017-07-27 19:07 | PC.NURSE ---
pt noted to have redness, warmth and swelling at IV site. in room, states pt is having a reaction to azithromycin and orders to stop med at this time. iv flushed and noted to have no leaking, can feel flush in proximal vein
[2017-07-28] VITALS (9 sets, daily range): BP systolic 137–181; BP diastolic 78–111; PULSE 68–100; RESP 20; TEMP 36.3–36.6; O2SAT 2–92
--- NOTE | 2017-07-28 05:03 | PC.NURSE ---
DR FALK IN TO SEE PATIENT AT BEGINNING OF SHIFT AND DC'ED ROCEPHIN DUE TO IRRITATION TO PATIENT'S ARM SWELLING AND TURNING RED. APPLIED ICE PACK TO AFFECTED AREA. PATIENT STATES SHE HAS RESTED BETTER TONIGHT THAN SHE HAS IN A LONG TIME. STILL HAS SOME SCATTERED WHEEZES AND RHONCHI THROUGHOUT. ONSET OF HTN. PATIENT WAS ORDERED NORVASC AND LISINOPRIL BY MD DUE TO ELEVATED B/P. PATIENT IS ON 2L PER NC AND IS UP IN CHAIR WITH CALL LIGHT IN REACH.VSS. NO ACUTE CHANGES THIS SHIFT. WILL CONTINUE TO MONITOR.
--- NOTE | 2017-07-28 07:14 | PC.NURSE ---
REPORT GIVEN TO Keo FUCHS W/C
--- NOTE | 2017-07-28 07:34 | PC.NURSE ---
Received report from Sal Lewis RN
--- NOTE | 2017-07-28 08:39 | HMH.ACPN2 ---
<Leigh Felix - Last Filed: 07/28/17 08:39> Internal Medicine - PN: Subj *Date: 07/28/17 *Time: 08:39 Interval history: She states she is feeling much better this morning. Less short of air. Has been up to the chair. Did have a reaction to Zithromax on 2 occasions yesterday. This will be discontinued today. Has not had a bowel movement in almost a week. Denies any pain. Exam Vital signs and Labs for Last 24 Hours: Temp Pulse Resp BP Pulse Ox 97.4 F L 100 H 20 137/78 91 L 07/28/17 08:31 07/28/17 08:31 07/28/17 08:31 07/28/17 08:31 07/28/17 08:31 I & O for Last 24 hours: Intake & Output 07/25/17 07/26/17 07/27/17 07/28/17 11:59 11:59 11:59 11:59 Intake Total 3092 / 3092 1500 / 1500 1080 / 1080 1440 / 1440 Output Total 0 / 0 Balance 3092 / 3092 1500 / 1500 1080 / 1080 1440 / 1440 - Constitutional no acute distress - *Routine Respiratory Exam Present: CTA bilaterally (much better air movement) - *Routine Cardiovascular Exam Present: RRR - *Routine Abdominal Exam Present: soft, normoactive bowel sounds. Absent: tenderness - *Routine Extremities Exam Present: edema (trace) Assessment and Plan (1) Influenza A Current visit: Yes Status: Resolved Category: Medical Code(s): J10.1 - Influenza due to other identified influenza virus with other respiratory manifestations (2) Acute bronchospasm Current visit: Yes Status: Acute Category: Medical Code(s): J98.01 - Acute bronchospasm (3) Hypoxia Current visit: Yes Status: Acute Category: Medical Code(s): R09.02 - Hypoxemia (4) Pneumonia Current visit: Yes Status: Acute Category: Medical Code(s): J18.9 - Pneumonia, unspecified organism (5) Constipation Current visit: Yes Status: Acute Category: Medical Code(s): K59.00 - Constipation, unspecified - Assessment and plan all Dx Assessment and Plan for all problems:: Discontinue Zithromax. Will discuss with Dr. Westfall whether he would like to continue Rocephin or start the patient on monotherapy with Levaquin. Start on MiraLAX for constipation. Will he be able to be discharged soon. <Sarah Westfallian - Last Filed: 07/28/17 10:18> Internal Medicine - PN: Subj *Date: 07/28/17 *Time: 10:17 Exam Vital signs and Labs for Last 24 Hours: Temp Pulse Resp BP Pulse Ox 97.4 F L 100 H 20 137/78 91 L 07/28/17 08:31 07/28/17 08:31 07/28/17 08:31 07/28/17 08:31 07/28/17 08:31 I & O for Last 24 hours: Intake & Output 07/25/17 07/26/17 07/27/17 07/28/17 11:59 11:59 11:59 11:59 Intake Total 3092 / 3092 1500 / 1500 1080 / 1080 1440 / 1440 Output Total 0 / 0 Balance 3092 / 3092 1500 / 1500 1080 / 1080 1440 / 1440 Assessment and Plan (1) Pneumonia Current visit: Yes Status: Acute Category: Medical Code(s): J18.9 - Pneumonia, unspecified organism (2) Acute bronchospasm Current visit: Yes Status: Acute Category: Medical Code(s): J98.01 - Acute bronchospasm (3) Dehydration Current visit: Yes Status: Resolved Category: Medical Code(s): E86.0 - Dehydration (4) Hypoxia Current visit: Yes Status: Acute Category: Medical Code(s): R09.02 - Hypoxemia (5) Influenza A Current visit: Yes Status: Resolved Category: Medical Code(s): J10.1 - Influenza due to other identified influenza virus with other respiratory manifestations (6) HTN (hypertension) Current visit: Yes Status: Acute Qualifiers: Hypertension type: essential hypertension Qualified Code(s): I10 - Essential (primary) hypertension Category: Medical Code(s): I10 - Essential (primary) hypertension - Assessment and plan all Dx Assessment and Plan for all problems:: Saw patient this morning. OK to leave IV out, will change to Omnipen for pneumonia treatment.
--- NOTE | 2017-07-28 09:54 | PC.NURSE ---
Dr Westfall in to see pt. (L) FA IV infiltrated and removed /c tip intact. Dr Westfall authorized IV to remain out x24 hours and then attempt to restart tomorrow. Dr will change IV solu-Medrol to PO steriods.
--- NOTE | 2017-07-28 10:47 | XR_ITS ---
XR chest 2V Ordering Physician: Michael Westfall MD Patient Age: 81 years: Female HISTORY: ITS.REASON: Pneumonia f/u Pneumonia follow-up TECHNIQUE: PA and lateral chest COMPARISON :07/23/2017 FINDINGS RIGHT CHEST Right basilar infiltrate or atelectasis persist. No improvement. Appears to be slight progression of findings:. . Additional atelectasis and density is seen at the posterior medial right lung base as seen on lateral film. .Also note minor linear area of atelectasis today superiorly RLL projected just beneath the minor fissure projection also with slight Additional density right infrahilar area on the frontal projection. Slight blunting right ankle could reflect & question small pleural effusion LEFT LUNG is minimal atelectasis likely at the medial left lung base is similar to previous study. Difficult to exclude minimal infiltrate here but favor mainly atelectasis.. Upper lung [place] remain clear bilaterally Stable Cardiomegaly again observed left ventricular configuration. No vascular congestion or CHF Tortuous ectatic aorta again noted. Fullness right paratracheal region most likely reflects tortuous vessel prominent vessel as well.. IMPRESSION Slight progression of findings at the right lung base. . slight additional atelectasis and likely infiltrate at RLL compared to 07/23/2017.
--- NOTE | 2017-07-28 15:10 | PC.NURSE ---
1510 - Pt A&Ox3 this shift. VSS. Afebrile. Heart rate reg. Lungs /c crackles & rhonchi. O2 @ 2LPM via NC. Abd soft and non-tender /c active BS x4 quads. Denies difficulty /c urination. Pt reports no BM x7 days; Miralax given this AM per MAR documentation. BLE knee high NERY hose in place. (L) FA IV infiltrated and was removed. approved leaving IV out today. No c/o verbalized this shift. Will continue to monitor.
--- NOTE | 2017-07-28 18:53 | PC.NURSE ---
1899 - report given to Keo Edgar RN
[2017-07-29] VITALS (11 sets, daily range): BP systolic 105–162; BP diastolic 75–103; PULSE 53–83; RESP 18–20; TEMP 36.4–36.7; O2SAT 88–91
--- NOTE | 2017-07-29 04:53 | PC.NURSE ---
MEDICATED PT FOR COUGH AT BEGINNING OF SHIFT PER REQUEST, NO FURTHER COMPLAINTS STATED. ATTEMPTED TO WEAN OXYGEN THIS SHIFT. AT START OF SHIFT PT ON 2LNC, RN THEN WEANED OXYGEN ON FIRST ROUND TO 1LNC ON REASSESSMENT AT 2140 O2 SATS NOTED IN 90'S, RN THEN WEANED OXYGEN TO 0.5LNC ON REASSESSMENT AROUND 2215 O2 SATS NOTED AT 91%. WHILE PT WAS SLEEPING OXYGEN INCREASED TO 1LNC R/T OXYGEN DECREASING TO 80'S, IF PT NOTED AWAKE, WILL ATTEMPT TO WEAN OXYGEN AGAIN. NO COMPLAINTS OF SOA STATED. DROPLET PRECAUTIONS TOLERATED WELL. SCATTERED WHEEZING LUNG SOUNDS AUSCULTATED. INDEPENDENT WITH ADLS. LAST STATED BM WAS A WEEK AGO, PROVIDED PT WITH PRUNE JUICE, NO STOOL NOTED THIS SHIFT. VSS. WILL CONTINUE TO MONITOR.
[2017-07-29 06:24] LABS: Basophils % 0.5 % (0.1-2.0); Eosinophils % 0.3 % (0.1-12.0); Hematocrit 35.1 % (37.0-47.0); Hemoglobin 11.1 g/dL (12.2-16.2); Lymphocytes # 0.9 K/mm3 (0.7-4.5); Lymphocytes % 11.1 K/mm3 (10-50); Mean Corpuscular HGB Conc 31.7 g/dL (31.8-35.4); Mean Corpuscular Hemoglobin 29.5 pg (27.0-31.2); Mean Corpuscular Volume 93.1 fl (81-99); Mean Platelet Volume 8.3 fl (7.4-10.4); Monocytes # 0.5 K/mm3 (0.1-1.0); Monocytes % 6.2 % (1.7-9.3); Neutrophils # 6.8 K/mm3 (1.8-7.8); Neutrophils % 81.8 % (37.0-80.0); Platelet Count 278 K/mm3 (142-424); Red Blood Count 3.77 M/mm3 (4.20-5.40); Red Cell Distribution Width 14.4 % (11.5-17.5); White Blood Count 8.3 K/mm3 (4.8-10.8)
[2017-07-29 06:37] LABS: Blood Urea Nitrogen 25 mg/dL (7-18); Carbon Dioxide 33 mmol/L (21.0-32.0); Chloride 103 mmol/L (98-107); Creatinine Clearance Estimated 65 mL/min (0-300); Creatinine,Serum 1.28 mg/dL (0.55-1.02); Estimated Glomerular Filt Rate 40 ml/min (>60); GFR (African American) 49 ML/MIN (>60); Glucose 142 mg/dL (74-106); Sodium 138 mmol/L (136-145)
--- NOTE | 2017-07-29 07:12 | PC.NURSE ---
REPORT GIVEN TO Keo FUCHS W/C
--- NOTE | 2017-07-29 07:31 | PC.NURSE ---
REPORT GIVEN TO RUPAL RN
--- NOTE | 2017-07-29 07:49 | HMH.ACPN2 ---
Internal Medicine - PN: Subj *Date: 07/29/17 *Time: 07:49 Interval history: Patient feels a little better this morning, no new complaints. Exam Vital signs and Labs for Last 24 Hours: Temp Pulse Resp BP Pulse Ox 98.1 F 73 20 162/103 90 L 07/29/17 04:00 07/29/17 06:40 07/29/17 04:00 07/29/17 04:00 07/29/17 06:40 Laboratory Results - last 24 hr 07/29/17 06:10: WBC 8.3, RBC 3.77 L, Hgb 11.1 L, Hct 35.1 L, MCV 93.1, MCH 29.5, MCHC 31.7 L, RDW 14.4, Plt Count 278, MPV 8.3, Neut % (Auto) 81.8 H, Lymph % (Auto) 11.1, [place] % (Auto) 6.2, Eos % (Auto) 0.3, Baso % (Auto) 0.5, Neut # (Auto) 6.8, Lymph # (Auto) 0.9, [place] # (Auto) 0.5, Eos # (Auto) 0.0, Baso # (Auto) 0.0 07/29/17 06:10: Sodium 138, Potassium 5.0, Chloride 103, Carbon Dioxide 33 H, Anion Gap 7.0, BUN 25 H, Creatinine 1.28 H, Estimated Creat Clear 65, Estimated GFR 40 L, Est GFR ( Amer) 49 L, Glucose 142 H Vital Signs Temp Pulse Pulse Resp BP Pulse Ox 07/29/17 06:40 70 90 L 07/29/17 04:00 98.1 F 81 20 162/103 91 L 07/29/17 03:22 88 L 07/29/17 01:14 78 07/29/17 01:13 78 07/28/17 20:30 91 L 07/28/17 20:00 97.9 F 87 20 152/102 91 L 07/28/17 18:48 68 07/28/17 18:46 72 07/28/17 16:20 97.6 F 85 20 175/90 91 L 07/28/17 12:38 90 07/28/17 08:31 97.4 F L 100 H 20 137/78 91 L Intake and Output 07/28/17 07/29/17 07/29/17 19:59 03:59 11:59 Intake Total 480 / 480 240 / 240 Output Total 0 / 0 Balance 480 / 480 240 / 240 Intake: Intake, Oral Amount 480 / 480 240 / 240 Output: Output, Stool Amount 0 / 0 Other: Number of Voids 1 Number of Unmeasured Voids 3 2 I & O for Last 24 hours: Intake & Output 07/26/17 07/27/17 07/28/17 07/29/17 11:59 11:59 11:59 11:59 Intake Total 1500 / 1500 1080 / 1080 1440 / 1440 720 / 720 Output Total 0 / 0 0 / 0 Balance 1500 / 1500 1080 / 1080 1440 / 1440 720 / 720 Microbiology Reports for the Last 24 Hours: Microbiology 07/28/17 19:00 Sputum - Expectorated Sputum Gram Stain - Final - Constitutional no acute distress - *Routine Respiratory Exam Present: decreased breath sounds (right base, otherwise clearer today) - *Routine Cardiovascular Exam Present: irregular rhythm Assessment and Plan (1) Pneumonia Current visit: Yes Status: Acute Category: Medical Code(s): J18.9 - Pneumonia, unspecified organism (2) Acute bronchospasm Current visit: Yes Status: Acute Category: Medical Code(s): J98.01 - Acute bronchospasm (3) Dehydration Current visit: Yes Status: Resolved Category: Medical Code(s): E86.0 - Dehydration (4) Hypoxia Current visit: Yes Status: Acute Category: Medical Code(s): R09.02 - Hypoxemia (5) Influenza A Current visit: Yes Status: Resolved Category: Medical Code(s): J10.1 - Influenza due to other identified influenza virus with other respiratory manifestations (6) HTN (hypertension) Current visit: Yes Status: Acute Qualifiers: Hypertension type: essential hypertension Qualified Code(s): I10 - Essential (primary) hypertension Category: Medical Code(s): I10 - Essential (primary) hypertension - Assessment and plan all Dx Assessment and Plan for all problems:: Patient continues to slowly improve, BP still high, will check EKG today due to irregular heart rhythm, down to 1 L of O2 now.
--- NOTE | 2017-07-29 07:51 | PC.NURSE ---
0715 - Received report from Keo Edgar RN
--- NOTE | 2017-07-29 07:52 | P.PN_ITS ---
Internal Medicine - PN: Subj *Date: 07/29/17 *Time: 07:49 Interval history: Patient feels a little better this morning, no new complaints. Exam Vital signs and Labs for Last 24 Hours: Temp Pulse Resp BP Pulse Ox 98.1 F 73 20 162/103 90 L 07/29/17 04:00 07/29/17 06:40 07/29/17 04:00 07/29/17 04:00 07/29/17 06:40 Laboratory Results - last 24 hr 07/29/17 06:10: WBC 8.3, RBC 3.77 L, Hgb 11.1 L, Hct 35.1 L, MCV 93.1, MCH 29.5 , MCHC 31.7 L, RDW 14.4, Plt Count 278, MPV 8.3, Neut % (Auto) 81.8 H, Lymph % ( Auto) 11.1, [place] % (Auto) 6.2, Eos % (Auto) 0.3, Baso % (Auto) 0.5, Neut # (Auto ) 6.8, Lymph # (Auto) 0.9, [place] # (Auto) 0.5, Eos # (Auto) 0.0, Baso # (Auto) 0.0 07/29/17 06:10: Sodium 138, Potassium 5.0, Chloride 103, Carbon Dioxide 33 H, Anion Gap 7.0, BUN 25 H, Creatinine 1.28 H, Estimated Creat Clear 65, Estimated GFR 40 L, Est GFR ( Amer) 49 L, Glucose 142 H Vital Signs Temp Pulse Pulse Resp BP Pulse Ox 07/29/17 06:40 70 90 L 07/29/17 04:00 98.1 F 81 20 162/103 91 L 07/29/17 03:22 88 L 07/29/17 01:14 78 07/29/17 01:13 78 07/28/17 20:30 91 L 07/28/17 20:00 97.9 F 87 20 152/102 91 L 07/28/17 18:48 68 07/28/17 18:46 72 07/28/17 16:20 97.6 F 85 20 175/90 91 L 07/28/17 12:38 90 07/28/17 08:31 97.4 F L 100 H 20 137/78 91 L Intake and Output 07/28/17 07/29/17 07/29/17 19:59 03:59 11:59 Intake Total 480 / 480 240 / 240 Output Total 0 / 0 Balance 480 / 480 240 / 240 Intake: Intake, Oral Amount 480 / 480 240 / 240 Output: Output, Stool Amount 0 / 0 Other: Number of Voids 1 Number of Unmeasured Voids 3 2 I & O for Last 24 hours: Intake & Output 07/26/17 07/27/17 07/28/17 07/29/17 11:59 11:59 11:59 11:59 Intake Total 1500 / 1500 1080 / 1080 1440 / 1440 720 / 720 Output Total 0 / 0 0 / 0 Balance 1500 / 1500 1080 / 1080 1440 / 1440 720 / 720 Microbiology Reports for the Last 24 Hours: Microbiology 07/28/17 19:00 Sputum - Expectorated Sputum Gram Stain - Final - Constitutional no acute distress - *Routine Respiratory Exam Present: decreased breath sounds (right base, otherwise clearer today) - *Routine Cardiovascular Exam Present: irregular rhythm Assessment and Plan (1) Pneumonia Current visit: Yes Status: Acute Category: Medical Code(s): J18.9 - Pneumonia, unspecified organism (2) Acute bronchospasm Current visit: Yes Status: Acute Category: Medical Code(s): J98.01 - Acute bronchospasm (3) Dehydration Current visit: Yes Status: Resolved Category: Medical Code(s): E86.0 - Dehydration (4) Hypoxia Current visit: Yes Status: Acute Category: Medical Code(s): R09.02 - Hypoxemia (5) Influenza A Current visit: Yes Status: Resolved Category: Medical Code(s): J10.1 - Influenza due to other identified influenza virus with other respiratory manifestations (6) HTN (hypertension) Current visit: Yes Status: Acute Qualifiers: Hypertension type: essential hypertension Qualified Code(s): I10 - Essential (primary) hypertension Category: Medical Code(s): I10 - Essential (primary) hypertension
--- NOTE | 2017-07-29 18:38 | PC.NURSE ---
Pt A&Ox3 this shift. VSS. Afebrile. Heart rate irreg this AM. ekg revealed a-fib. Lungs /c diminished lung sounds throughout. O2 @ 1LPM via NC. Abd soft and non-tender /c active BS x4 quads. Denies difficulty /c urination. Pt reports no BM x8 days; Miralax given this AM per SEP documentation. BLE knee high NERY hose in place. No c/o verbalized this shift. Will continue to monitor
[2017-07-30] VITALS (10 sets, daily range): BP systolic 124–160; BP diastolic 64–93; PULSE 47–77; RESP 20–22; TEMP 36.4–37; O2SAT 89–91
--- NOTE | 2017-07-30 04:02 | PC.NURSE ---
no changes noted from previous assessment, pt denies chest pain, pt still SOA with activity, fine crackles noted to bilateral lower bases, pt maintaining O2 sats at or above 90 on 1L NC, vss, bowel sounds active, no acute distress noted at this time, call light in reach, will continue to monitor.
--- NOTE | 2017-07-30 04:12 | PC.NURSE ---
NURSE WAS NOTIFIED OF PTS ELEVATED BP
--- NOTE | 2017-07-30 07:10 | PC.NURSE ---
Report given to Sierra Balderrama RN
--- NOTE | 2017-07-30 07:22 | PC.NURSE ---
REPORT GIVEN TO Kori MAGANA W/C
--- NOTE | 2017-07-30 07:40 | PC.NURSE ---
0720 - received bedside report from Keo Jensen RN
--- NOTE | 2017-07-30 08:41 | HMH.ACPN2 ---
Internal Medicine - PN: Subj *Date: 07/30/17 *Time: 08:41 Interval history: Feeling better each day; wants to go home. Less SOB and cough; has been able to sleep; O2 sat decreased last night and placed back on O2 at 1 LPM; still not eating well; bowels have not moved as yet; passing flatus Exam Vital signs and Labs for Last 24 Hours: Temp Pulse Resp BP Pulse Ox 97.9 F 56 L 20 138/84 90 L 07/30/17 07:32 07/30/17 07:32 07/30/17 07:32 07/30/17 07:32 07/30/17 07:32 I & O for Last 24 hours: Intake & Output 07/27/17 07/28/17 07/29/17 07/30/17 11:59 11:59 11:59 11:59 Intake Total 1080 / 1080 1440 / 1440 1080 / 1080 1680 / 1680 Output Total 0 / 0 0 / 0 Balance 1080 / 1080 1440 / 1440 1080 / 1080 1680 / 1680 Microbiology Reports for the Last 24 Hours: Microbiology 07/28/17 19:00 Sputum - Expectorated Sputum Gram Stain - Final 07/28/17 19:00 Sputum - Expectorated Sputum Sputum Culture - Preliminary - Constitutional no acute distress Comments: sitting on bedside and breathing easy - *Routine Respiratory Exam Absent: accessory muscle use Comments: less expiratory wheeze - *Routine Cardiovascular Exam Present: RRR - *Routine Abdominal Exam Present: normoactive bowel sounds. Absent: tenderness - *Routine Extremities Exam Absent: edema, full ROM, calf tenderness - *Routine Neurological Exam Present: alert Assessment and Plan (1) Pneumonia Current visit: Yes Status: Acute Category: Medical Code(s): J18.9 - Pneumonia, unspecified organism (2) Acute bronchospasm Current visit: Yes Status: Acute Category: Medical Code(s): J98.01 - Acute bronchospasm (3) Dehydration Current visit: Yes Status: Resolved Category: Medical Code(s): E86.0 - Dehydration (4) Hypoxia Current visit: Yes Status: Acute Category: Medical Code(s): R09.02 - Hypoxemia (5) Influenza A Current visit: Yes Status: Resolved Category: Medical Code(s): J10.1 - Influenza due to other identified influenza virus with other respiratory manifestations - Assessment and plan all Dx Assessment and Plan for all problems:: additional med for constipation; continue with current treatment and wean from O2
--- NOTE | 2017-07-30 09:01 | CA_ITS ---
PROCEDURE: 2-D M-mode and color Doppler study INDICATIONS FOR THE TEST: Chest pain COPD Heart Murmur Tobacco SmokingEX Palpitations Fatigue Syncope Edema HypertensionXDiabetes Mellitus Rheumatic Fever SOBXDOEXObesityXHyperlipidemia Family History HD Additional History CARDIOMEGALY TDS SECONDARY TO OBESITY PATIENT INFORMATION HEIGHT: 66 WEIGHT:254 GENDER: Female B/P:162/103 2-D/M-MODE INTERPRETATION: 2-D MEASUREMENTS OBSERVED VALUES IN CMS Right Ventricular Dimension (RVDd) 3.6 Interventricular Septum (Thickness)(IVsd) 1.3 Left Ventricular Internal Dimensions(LVIDd) 5.7 Left Ventricular Posterior Wall (Thickness)(LVPW) 1.2 Aortic Root 3.2 Aortic Cusp Separation 2.2 Left Atrial Dimensions (LAD) 4.2 2D 1. Left atrium is mildly enlarged, left ventricle is normal size, there is mild concentric left ventricular hypertrophy, visually estimated ejection fraction of 55% with no obvious regional wall motion abnormality. 2. The right atrium and right ventricle are mildly enlarged with normal contractility. 3. The aortic valve is minimally thickened and fibrosed. 4. The mitral and tricuspid valve leaflets are minimally thickened. 5. The pulmonic valve is poorly visualized. 6. No significant pericardial effusion noted. DOPPLER INTERROGATION: Doppler interrogation of the aortic, mitral and tricuspid valvular presence of mild mitral and tricuspid regurgitation, tricuspid regurgitant jet velocity is insufficient for calculation of the right ventricular systolic pressure, diastolic parameters are inconclusive. CONCLUSION: 1. Technically difficult study because of the patient's factor and poor acoustic windows 2. Mildly enlarged left atrium, normal left ventricular size, mild concentric left ventricular hypertrophy, visually estimated ejection fraction 55% with no obvious regional wall motion abnormality, diastolic parameters are inconclusive. 3. Mild mitral and tricuspid regurgitation. 4. Mildly enlarged right ventricle with normal contractility. 5. No significant pericardial effusion noted.
[2017-07-30 10:01] LABS: Thyroid Stimulating Hormone 1.27 uIU/ml (0.358-3.740)
--- NOTE | 2017-07-30 10:05 | PC.NURSE ---
1005 - Pt refused sennokot as pt reports having 2 good sized soft runny orange yellow looking bowel movements this AM.
--- NOTE | 2017-07-30 13:17 | DIET.NUTRFU ---
New weight obtained, 273 lbs. BMI 44. Pt reports improved appetite and po intakes 75-100%. Constipation resolving. No further nutritional concerns.
--- NOTE | 2017-07-30 14:35 | PC.NURSE ---
Interdisciplinary team coordination with dietary, nursing, pharmacy, and case management. Discussed pt care and discharge plans.
--- NOTE | 2017-07-30 15:56 | PC.NURSE ---
Pt A&Ox3 this shift. VSS. Afebrile. Denies pain. Heart rate reg. Lungs diminished /c crackles noted bilat bases. O2 @ 1LPM via NC. Attempted to wean off oxygen and sats dropped to 88%. Abd soft round and non-tender /c active bowel sounds x4 quads. Pt reports 2 BMs this shift /p Miralax, warm prune juice and coffee intake. Pt is independent /c ambulation to/from BR. Pt has been up to chair multiple times this shift. No c/o verbalized at this time. Will continue to monitor.
[2017-07-31 04:00] VITALS: BP 132/75; PULSE 67; RESP 18; TEMP 36.4; O2SAT 90
--- NOTE | 2017-07-31 05:58 | PC.NURSE ---
no changes noted since previous assessment, pt has slept well most of shift, pt had cough twice during shift which was relieved by medication per SEP, pt has remained on room air throughout shift with O2 sats above 90, pt denies SOA while ambulating to bathroom, wheezing noted, bowel sounds are active, no acute distress noted at this time, call light in reach, will continue to monitor.
[2017-07-31 06:16] VITALS: PULSE 41; PULSE 43; O2SAT 88
[2017-07-31 08:00] VITALS: BP 139/83; PULSE 51; RESP 20; TEMP 36.3; O2SAT 90
--- NOTE | 2017-07-31 08:23 | HMH.ACPN2 ---
<Kelsey Yeung - Last Filed: 07/31/17 08:23> Internal Medicine - PN: Subj *Date: 07/31/17 *Time: 08:23 Interval history: Has been off O2 since last evening; states O2 sats have been 90 and >; denies CP; Did sleep some; eating a little better; Bowels did move; voiding QS; very anxious to go home Exam Vital signs and Labs for Last 24 Hours: Temp Pulse Resp BP Pulse Ox 97.6 F 43 L 18 132/75 88 L 07/31/17 04:00 07/31/17 06:16 07/31/17 04:00 07/31/17 04:00 07/31/17 06:16 Laboratory Results - last 24 hr 07/30/17 09:16: TSH 1.27 I & O for Last 24 hours: Intake & Output 07/28/17 07/29/17 07/30/17 07/31/17 11:59 11:59 11:59 11:59 Intake Total 1440 / 1440 1080 / 1080 1680 / 1680 1000 / 1000 Output Total 0 / 0 0 / 0 Balance 1440 / 1440 1080 / 1080 1680 / 1680 1000 / 1000 Weight 273 lb 8 oz Microbiology Reports for the Last 24 Hours: Microbiology 07/28/17 19:00 Sputum - Expectorated Sputum Gram Stain - Final 07/28/17 19:00 Sputum - Expectorated Sputum Sputum Culture - Final Normal Respiratory [facility] Reports for the Last 24 Hours: 07/30/17 ECHO CONCLUSION: 1. Technically difficult study because of the patient's factor and poor acoustic windows 2. Mildly enlarged left atrium, normal left ventricular size, mild concentric left ventricular hypertrophy, visually estimated ejection fraction 55% with no obvious regional wall motion abnormality, diastolic parameters are inconclusive. 3. Mild mitral and tricuspid regurgitation. 4. Mildly enlarged right ventricle with normal contractility. 5. No significant pericardial effusion noted. - Constitutional no acute distress Comments: sitting on bedside and appears comfortable - *Routine Respiratory Exam Absent: accessory muscle use Comments: few scattered crackles; rare wheeze - *Routine Cardiovascular Exam Present: RRR - *Routine Abdominal Exam Present: soft, normoactive bowel sounds. Absent: tenderness - *Routine Extremities Exam Present: full ROM. Absent: calf tenderness Comments: NERY walsh on - *Routine Neurological Exam Present: alert, oriented X3 Assessment and Plan (1) Influenza A Current visit: Yes Status: Resolved Category: Medical Code(s): J10.1 - Influenza due to other identified influenza virus with other respiratory manifestations (2) Acute bronchospasm Current visit: Yes Status: Acute Category: Medical Code(s): J98.01 - Acute bronchospasm (3) Hypoxia Current visit: Yes Status: Acute Category: Medical Code(s): R09.02 - Hypoxemia (4) Pneumonia Current visit: Yes Status: Acute Category: Medical Code(s): J18.9 - Pneumonia, unspecified organism (5) Constipation Current visit: Yes Status: Acute Category: Medical Code(s): K59.00 - Constipation, unspecified (6) New onset atrial fibrillation Current visit: Yes Status: Acute Category: Medical Code(s): I48.91 - Unspecified atrial fibrillation - Assessment and plan all Dx Assessment and Plan for all problems:: May be discharged to home; metoprolol increased; will need inhaler(s) <Michael Westfall - Last Filed: 07/31/17 08:57> Internal Medicine - PN: Subj *Date: 07/31/17 *Time: 08:57 Exam Vital signs and Labs for Last 24 Hours: Temp Pulse Resp BP Pulse Ox 97.6 F 43 L 18 132/75 88 L 07/31/17 04:00 07/31/17 06:16 07/31/17 04:00 07/31/17 04:00 07/31/17 06:16 Laboratory Results - last 24 hr 07/30/17 09:16: TSH 1.27 I & O for Last 24 hours: Intake & Output 07/28/17 07/29/17 07/30/17 07/31/17 11:59 11:59 11:59 11:59 Intake Total 1440 / 1440 1080 / 1080 1680 / 1680 1000 / 1000 Output Total 0 / 0 0 / 0 Balance 1440 / 1440 1080 / 1080 1680 / 1680 1000 / 1000 Weight 273 lb 8 oz Microbiology Reports for the Last 24 Hours: Microbiology 07/28/17 19:00 Sputum - Expectorated Sputum Gram Stain - Final 07/28/17
--- NOTE | 2017-07-31 17:52 | HMH.DCSUM ---
General - General Admission date: 07/22/17 <Leigh Felix - 07/31/17 18:02> Discharge date: 07/31/17 <Leigh Felix - 07/31/17 18:02> HPI HPI: 81 year old female patient of [facility] presents to [facility] urgent treatment center yesterday with a several day history of cough, congestion, fever and chills and progressively worse shortness of breath. She had tried some OTC meds with minimal improvements in symptoms. During the day yesterday patient felt like her breathing was worse and also felt like she was wheezing. She has unknown sick contacts but believes she has the flu. <Leigh Felix - 07/31/17 18:02> Objective Vital signs: Temp Pulse Resp BP Pulse Ox 97.4 F L 51 L 20 139/83 90 L 07/31/17 08:00 07/31/17 08:00 07/31/17 08:00 07/31/17 08:00 07/31/17 08:00 <Michael Westfall - 08/02/17 09:11> Temp Pulse Resp BP Pulse Ox 97.4 F L 51 L 20 139/83 90 L 07/31/17 08:00 07/31/17 08:00 07/31/17 08:00 07/31/17 08:00 07/31/17 08:00 <Leigh Felix - 07/31/17 18:02> Narrative: - Constitutional no acute distress - *Routine HEENT Exam Head: Present: normocephalic ENT: Present: mucous membranes moist - *Routine Respiratory Exam Present: wheezes (expiratory) - *Routine Cardiovascular Exam Present: RRR - *Routine Abdominal Exam Present: soft, normoactive bowel sounds. Absent: tenderness - *Routine Extremities Exam Absent: edema - *Routine Skin Exam Present: intact. Absent: rash - *Routine Neurological Exam Present: alert, oriented X3. Absent: sensory deficit, motor deficit <Leigh Felix - 07/31/17 18:02> Hospital Course Hospital Course: Patient did not want to start a new anticoagulant at time of discharge due to A.fib, she was considering taking an aspirin daily. Plan to discuss further at office visit in a few days. <Michael Westfall - 08/02/17 09:11> The patient's flu test was positive. She was admitted with influenza type A, dehydration, and hypoxic respiratory distress. She was started on Tamiflu, antiemetics, IVF, and steroids. Her O2 sats decreased and she had to be placed on a jacob mask at 50%. She had a CXR showing a RLL pneumonia. She was started on ABX's. She was able to be weaned to nasal oxygen. She did end up having a reaction to Zithromax on 2 occasions. This was discontinued and she was stable to be switched to oral omnicef. She had constipation, therefore Miralax was ordered. She improved slowly. Her BP elevated during her stay and BP medications were scheduled. She then went into af. Cardiology was consulted. They ordered an echo which showed a mildly enlarged left atrium, normal left ventricular size, mild concentric left ventricular hypertrophy, and a visually estimated ejection fraction 55% with no obvious regional wall motion abnormality. They felt she could be discharged on an increased dose of metoprolol. The patient improved and was stable to be discharged home on abx and BP medications. <Leigh Felix - 07/31/17 18:02> DS: Diagnosis - Discharge Diagnosis (1) Influenza A Status: Resolved (2) Acute bronchospasm Status: Acute (3) Hypoxia Status: Acute (4) Pneumonia Status: Acute (5) Constipation Status: Acute (6) New onset atrial fibrillation Status: Acute <Michael Westfall - 08/02/17 09:11> (1) Influenza A Status: Resolved (2) Acute bronchospasm Status: Acute (3) Hypoxia Status: Acute (4) Pneumonia Status: Acute (5) Constipation Status: Acute (6) HTN (hypertension) Status: Acute (7) New onset atrial fibrillation Status: Acute <Leigh Felix - 07/31/17 17:52> Meds Home Medications Medication Instructions Recorded Confirmed Type No Known Home Medications [No 07/21/17 07/21/17 History Known Home Medications] <Michael Westfall 08/02/17 09:11> Allergies Allergy/AdvReac Type Severity Reaction Status Date / Time
--- NOTE | 2017-07-31 18:02 | P.DS_ITS ---
General - General Admission date: 07/22/17 <Leigh Felix - 07/31/17 18:02> Discharge date: 07/31/17 <Leigh Felix - 07/31/17 18:02> HPI HPI: 81 year old female patient of [facility] presents to [facility] urgent treatment center yesterday with a several day history of cough, congestion, fever and chills and progressively worse shortness of breath. She had tried some OTC meds with minimal improvements in symptoms. During the day yesterday patient felt like her breathing was worse and also felt like she was wheezing. She has unknown sick contacts but believes she has the flu. <Leigh Felix - 07/31/17 18:02> Objective Vital signs: Temp Pulse Resp BP Pulse Ox 97.4 F L 51 L 20 139/83 90 L 07/31/17 08:00 07/31/17 08:00 07/31/17 08:00 07/31/17 08:00 07/31/17 08:00 <Michael Westfall - 08/02/17 09:11> Temp Pulse Resp BP Pulse Ox 97.4 F L 51 L 20 139/83 90 L 07/31/17 08:00 07/31/17 08:00 07/31/17 08:00 07/31/17 08:00 07/31/17 08:00 <Leigh Felix - 07/31/17 18:02> Narrative: - Constitutional no acute distress - *Routine HEENT Exam Head: Present: normocephalic ENT: Present: mucous membranes moist - *Routine Respiratory Exam Present: wheezes (expiratory) - *Routine Cardiovascular Exam Present: RRR - *Routine Abdominal Exam Present: soft, normoactive bowel sounds. Absent: tenderness - *Routine Extremities Exam Absent: edema - *Routine Skin Exam Present: intact. Absent: rash - *Routine Neurological Exam Present: alert, oriented X3. Absent: sensory deficit, motor deficit <Leigh Felix - 07/31/17 18:02> Hospital Course Hospital Course: Patient did not want to start a new anticoagulant at time of discharge due to A.fib, she was considering taking an aspirin daily. Plan to discuss further at office visit in a few days. <Michael Westfall - 08/02/17 09:11> The patient's flu test was positive. She was admitted with influenza type A, dehydration, and hypoxic respiratory distress. She was started on Tamiflu, antiemetics, IVF, and steroids. Her O2 sats decreased and she had to be placed on a jacob mask at 50%. She had a CXR showing a RLL pneumonia. She was started on ABX's. She was able to be weaned to nasal oxygen. She did end up having a reaction to Zithromax on 2 occasions. This was discontinued and she was stable to be switched to oral omnicef. She had constipation, therefore Miralax was ordered. She improved slowly. Her BP elevated during her stay and BP medications were scheduled. She then went into af. Cardiology was consulted. They ordered an echo which showed a mildly enlarged left atrium, normal left ventricular size, mild concentric left ventricular hypertrophy, and a visually estimated ejection fraction 55% with no obvious regional wall motion abnormality. They felt she could be discharged on an increased dose of metoprolol. The patient improved and was stable to be discharged home on abx and BP medications. <Leigh Felix - 07/31/17 18:02> DS: Diagnosis - Discharge Diagnosis (1) Influenza A Status: Resolved (2) Acute bronchospasm Status: Acute (3) Hypoxia Status: Acute (4) Pneumonia Status: Acute (5) Constipation Status: Acute (6) New onset atrial fibrillation Status: Acute <Michael Westfall - 08/02/17 09:11> (1) Influenza A Status: Resolved (2) Acute bronchospasm Status: Acute (3) H
== END 2017-07-31 09:44 | disposition home or self-care (01) | DRG 195 ==
LOC: UTC 16:34 → ER 17:19 → 2ND 19:46
PROVIDERS: Emergency Medicine; Nurse Practitioner Family; Admitting Provider Family Medicine; Emergency Provider Nurse Practitioner Family; Family Provider Family Medicine; Visit Provider Family Medicine
DX: J10.00 Influenza due to other identified influenza virus with unspecified type of pneumonia (principal); I48.91 Unspecified atrial fibrillation; E86.0 Dehydration; I10 Essential (primary) hypertension; J98.01 Acute bronchospasm
CPT/HCPCS: 36415; 71045; 71046; 80048; 80053; 82550; 82553; 82803; 84443; 84484; 85007; 85025; 86738; 87040; 87070; 87205; 87804; 87880; 93005; 93041; 93306; 94640; 94760; 94761; 96374; 99282; G0378; J0456; J2405

== ENCOUNTER 2017-08-03 10:17 | Inpatient (IN) | payer MEDICARE, SELFPAY ==
[2017-08-03] VITALS (7 sets, daily range): BP systolic 106–119; BP diastolic 47–70; PULSE 48–68; RESP 18–20; TEMP 36.6–36.8; O2SAT 88–96; BMI 41.1
--- NOTE | 2017-08-03 10:25 | XR_ITS ---
XR chest 2V HISTORY: ITS.REASON: Pneumonia ORDERING PHYSICIAN: Michael Westfall MD PATIENT AGE: 81 years COMPARISON: 07/28/2017 FINDINGS: The cardiomediastinal silhouette and pulmonary vascularity are within normal limits. There is moderate tortuosity of the thoracic aorta.. Right lower lobe consolidation has shown some improvement compared to the previous exam. Minimal atelectatic change in the left lung base and there is blunting of the posterior costophrenic sulcus suggesting small effusion possibly on the left. No acute bony abnormalities. IMPRESSION: 1. Persistent but improving right lower lobe pneumonia. 2. Mild atelectasis left lung base with small left effusion
[2017-08-03 11:33] LABS: Alanine Aminotransferase 20 U/L (12-78); Albumin Level 2.5 gm/dL (3.4-5.0); Albumin/Globulin Ratio 0.8 (1.1-1.8); Alkaline Phosphatase 57 U/L (46-116); Anion Gap 8.5 mEq/L (5-15); Aspartate Amino Transferase 10 U/L (15-37); Bilirubin,Total 1.6 mg/dL (0.2-1.0); Blood Urea Nitrogen 20 mg/dL (7-18); Calcium 8.6 mg/dL (8.5-10.1); Carbon Dioxide 32 mmol/L (21.0-32.0); Chloride 102 mmol/L (98-107); Creatinine Clearance Estimated 26 mL/min (0-300); Creatinine,Serum 1.65 mg/dL (0.55-1.02); Estimated Glomerular Filt Rate 30 ml/min (>60); GFR (African American) 36 ML/MIN (>60); Globulin 3.3 gm/dl (1.3-3.2); Glucose 101 mg/dL (74-106); Potassium 4.5 mmoL/L (3.5-5.1); Sodium 138 mmol/L (136-145); Total Protein,Serum 5.8 gm/dL (6.4-8.2)
[2017-08-03 14:59] LABS: Mycoplasma Pneumo IGM (Rapid) Non-Reactive (Non-Reactiv)
--- NOTE | 2017-08-03 15:16 | HMH.HP ---
*Admission Date: 08/03/17 <Leigh Felix 08/03/17 15:17> *Chief complaint: Weakness, cough <IsidroLeigh - 08/03/17 15:41> *History of present illness: Ms. Mcneill is a 81 year old female who presented to the office of A today for her hospital f/u for influenza and pneumonia. Pt states that she still feels horrible and states that she will occasionally cough up sputum that is slightly yellow. She has had continued nasal congestion and chest tightness. She has been short of breath for 2 weeks and her oxygen today in the office ranged from 88-93% on RA. She has had a headache for 2 weeks, body aches for 2 weeks, and has been extremely fatigued. She was so fatigued this am she could hardly get up and move and she was afraid she was going to pass out. She has been nauseated. Her WBC has increased and she was admitted again for failing outpatient therapy for pneumonia. <Leigh Felix 08/03/17 16:49> [facility] History Medical History: Reports:: Cancer (colon cancer, ovarian), Deep Vein Thrombosis (left leg) Denies:: Diabetes Mellitus Type 1, Diabetes Mellitus Type 2, MRSA <Leigh Felix 08/03/17 15:17> Other Medical History: Reports: Arthritis, Cataracts <IsidroLeigh - 08/03/17 15:17> Laterality Cases: Bilateral: Tonsillectomy <IsidroLeigh - 08/03/17 15:17> Other Surgeries: Yes: No Previous Surgery, Appendectomy, Colonoscopy, Colon Resection, Hysterectomy-Total <Leigh Felix 08/03/17 15:17> Amputation: No <Leigh Felix 08/03/17 15:17> Fractures: No <Arturo Felix08/03/17 15:17> - *Social History Educational Level: Completed High School <Leigh Felix 08/03/17 15:17> Smoking Status: Former smoker <Leigh Felix 08/03/17 15:17> Alcohol Intake: never <Leigh Felix 08/03/17 15:17> Occupational Status: retired <Leigh Felix 08/03/17 15:17> Housing: apartment <IsidroLeigh 08/03/17 15:17> Household Members: none <ChristopherkarmaLeigh 08/03/17 15:17> - Psychiatric History Expresses thoughts of harming self/others: None <ChristopherkarmaLeihg 08/03/17 15:17> Suicide Plan Description: No Plan <ChristopherkarmaLeigh 08/03/17 15:17> *Family Hx:: Diabetes <ChristopherkarmaLeigh 08/03/17 15:17> Review of Systems - Constitutional Reports body ache(s), Reports chills, Reports fatigue, Reports fever(s), Reports headache(s), Reports lack of energy <ChristopherkarmaLeigh 08/03/17 16:49> - Eyes Denies blurry vision, Denies double vision <IsidroLeigh - 08/03/17 16:49> - ENT Reports dizziness, Reports headache(s), Reports nasal discharge, Denies sore throat <IsidroLeigh 08/03/17 16:49> - *Cardiovascular Reports chest pain (with coughing), Reports shortness of breath <ChristopherkarmaLeigh 08/03/17 16:49> - *Respiratory Reports chest congestion, Reports cough, Reports shortness of breath, Reports pain with cough [facility] 08/03/17 16:49> - *Gastrointestinal Reports nausea, Denies abdominal pain, Denies loose stools, Denies vomiting <IsidroLeigh 08/03/17 16:49> - *Genitourinary Denies difficulty urinating <IsidroLeigh 08/03/17 16:49> - *Musculoskeletal Denies joint pain <ChristopherkarmaLeigh - 08/03/17 16:49> - *Neurologic Reports headache(s), Reports dizziness, Reports weakness <IsidroLeigh - 08/03/17 16:49> Meds Home Medications Medication Instructions Recorded Confirmed Type Cefdinir [Omnicef 300mg Capsule] 300 mg PO BID 08/03/17 08/03/17 History Lisinopril [Zestril 10mg Tab] 10 mg PO DAILY 08/03/17 08/03/17 History Metoprolol Tartrate [Lopressor 25 mg PO BID 08/03/17 08/03/17 History 25mg tablet] <Michael Westfall - 08/03/17 16:57> Allergies Allergy/AdvReac Type Severity Reaction Status Date / Time azithromycin Allergy Intermediate Hives Verified 07/27/17 18:57 <Michael Westfall - 08/03/17 16:57> Exam Vital signs and Labs for Last 24 Hours: Temp Pulse Resp BP Pulse Ox 97.8 F 48 L 18 106/47 96 08/03/17 16:00 08/03/17 16:00 08/03/17 16:00
[2017-08-03 15:52] LABS: Basophils % 0.1 % (0.1-2.0); Eosinophils # 0.1 K/mm3 (0.0-0.4); Eosinophils % 0.6 % (0.1-12.0); Hematocrit 36.7 % (37.0-47.0); Hemoglobin 11.7 g/dL (12.2-16.2); Lymphocytes # 1.2 K/mm3 (0.7-4.5); Lymphocytes % 8.9 K/mm3 (10-50); Mean Corpuscular HGB Conc 31.8 g/dL (31.8-35.4); Mean Corpuscular Hemoglobin 30.3 pg (27.0-31.2); Mean Corpuscular Volume 95.5 fl (81-99); Mean Platelet Volume 10.2 fl (7.4-10.4); Monocytes # 0.7 K/mm3 (0.1-1.0); Monocytes % 4.8 % (1.7-9.3); Neutrophils # 11.8 K/mm3 (1.8-7.8); Neutrophils % 85.5 % (37.0-80.0); Platelet Count 209 K/mm3 (142-424); Red Blood Count 3.85 M/mm3 (4.20-5.40); Red Cell Distribution Width 14.6 % (11.5-17.5); White Blood Count 13.8 K/mm3 (4.8-10.8)
[2017-08-03 15:55] LABS: MANUAL DIFFERENTIAL MANUAL DIFFERENTIAL (MANUAL DIFF)
[2017-08-03 16:55] LABS: Lymphocytes % 9 % (10-50); Monocytes % 5 % (2-9); Neutrophils % 86 % (42-76); Platelet Estimate Normal; RBC Morphology Normal; Total Cells Counted 100
[2017-08-04] VITALS (10 sets, daily range): BP systolic 95–129; BP diastolic 50–75; PULSE 57–89; RESP 18–24; TEMP 36.2–37.4; O2SAT 92–96
[2017-08-04 06:29] LABS: Basophils % 0.1 % (0.1-2.0); Eosinophils # 0.1 K/mm3 (0.0-0.4); Eosinophils % 0.8 % (0.1-12.0); Hematocrit 33.8 % (37.0-47.0); Hemoglobin 10.8 g/dL (12.2-16.2); Lymphocytes % 9.7 K/mm3 (10-50); Mean Corpuscular HGB Conc 32.1 g/dL (31.8-35.4); Mean Corpuscular Hemoglobin 30.2 pg (27.0-31.2); Mean Platelet Volume 9.5 fl (7.4-10.4); Monocytes # 0.5 K/mm3 (0.1-1.0); Monocytes % 4.7 % (1.7-9.3); Neutrophils # 8.4 K/mm3 (1.8-7.8); Neutrophils % 84.8 % (37.0-80.0); Platelet Count 154 K/mm3 (142-424); Red Blood Count 3.59 M/mm3 (4.20-5.40); Red Cell Distribution Width 14.7 % (11.5-17.5); White Blood Count 9.9 K/mm3 (4.8-10.8)
--- NOTE | 2017-08-04 06:39 | PC.NURSE ---
Pt slept well, reports she feels pretty good this morning. Nothing acute to report, ongoing care and pt remained safe and stable this shift. Beginning her poc.
--- NOTE | 2017-08-04 08:46 | HMH.ACPN2 ---
Internal Medicine - PN: Subj *Date: 08/04/17 *Time: 08:46 Interval history: Patient with no new complaints today, feels a little better. Exam Vital signs and Labs for Last 24 Hours: Temp Pulse Resp BP Pulse Ox 98.5 F 89 20 110/65 93 L 08/04/17 07:46 08/04/17 07:46 08/04/17 07:46 08/04/17 07:46 08/04/17 07:46 Laboratory Results - last 24 hr 08/03/17 10:49: Sodium 138, Potassium 4.5, Chloride 102, Carbon Dioxide 32, Anion Gap 8.5, BUN 20 H, Creatinine 1.65 H, Estimated Creat Clear 26, Estimated GFR 30 L, Est GFR ( Amer) 36 L, Glucose 101, Calcium 8.6, Total Bilirubin 1.6 H, AST 10 L, ALT 20, Alkaline Phosphatase 57, Total Protein 5.8 L, Albumin 2.5 L, Globulin 3.3 H, Albumin/Globulin Ratio 0.8 L 08/03/17 10:49: Mycoplasma pneumon IgM Non-reactive 08/03/17 10:49: WBC 13.8 H, RBC 3.85 L, Hgb 11.7 L, Hct 36.7 L, MCV 95.5, MCH 30.3, MCHC 31.8, RDW 14.6, Plt Count 209, MPV 10.2, Neut % (Auto) 85.5 H, Lymph % (Auto) 8.9 L, [place] % (Auto) 4.8, Eos % (Auto) 0.6, Baso % (Auto) 0.1, Neut # (Auto) 11.8 H, Lymph # (Auto) 1.2, [place] # (Auto) 0.7, Eos # (Auto) 0.1, Baso # (Auto) 0.0, Total Counted 100, Neutrophils % (Manual) 86 H, Lymphocytes % (Manual) 9 L, Monocytes % (Manual) 5, Platelet Estimate Normal, RBC Morphology Normal 08/04/17 06:09: WBC 9.9 D, RBC 3.59 L, Hgb 10.8 L, Hct 33.8 L, MCV 94.0, MCH 30.2, MCHC 32.1, RDW 14.7, Plt Count 154 D, MPV 9.5, Neut % (Auto) 84.8 H, Lymph % (Auto) 9.7 L, [place] % (Auto) 4.7, Eos % (Auto) 0.8, Baso % (Auto) 0.1, Neut # (Auto) 8.4 H, Lymph # (Auto) 1.0, [place] # (Auto) 0.5, Eos # (Auto) 0.1, Baso # (Auto) 0.0 Vital Signs Temp Pulse Pulse Resp BP Pulse Ox 08/04/17 07:46 98.5 F 89 20 110/65 93 L 08/04/17 07:14 80 92 L 08/04/17 04:00 99.4 F 64 18 129/75 93 L 08/04/17 00:00 98.4 F 74 18 112/59 94 L 08/03/17 23:00 68 90 L 08/03/17 20:00 98.2 F 57 L 18 107/58 95 08/03/17 19:55 95 08/03/17 18:11 55 L 91 L 08/03/17 16:00 97.8 F 48 L 18 106/47 96 08/03/17 11:33 55 L 88 L 08/03/17 10:35 98.3 F 50 L 20 119/70 93 L Intake and Output 08/03/17 08/04/17 08/04/17 19:59 03:59 11:59 Intake Total 600 / 600 Balance 600 / 600 Intake: Intake, Oral Amount 600 / 600 Other: Number of Unmeasured Voids 3 2 I & O for Last 24 hours: Intake & Output 08/01/17 08/02/17 08/03/17 08/04/17 11:59 11:59 11:59 11:59 Intake Total 600 / 600 Balance 600 / 600 Weight 255 lb 1 oz - Constitutional no acute distress - *Routine Respiratory Exam Present: crackles (few bibasilar, but generally clear) - *Routine Cardiovascular Exam Present: RRR Assessment and Plan (1) Pneumonia Current visit: No Status: Acute Category: Medical Code(s): J18.9 - Pneumonia, unspecified organism (2) Hypoxia Current visit: No Status: Acute Category: Medical Code(s): R09.02 - Hypoxemia (3) Leukocytosis Current visit: Yes Status: Acute Category: Medical Code(s): D72.829 - Elevated white blood cell count, unspecified (4) HTN (hypertension) Current visit: No Status: Chronic Qualifiers: Hypertension type: essential hypertension Qualified Code(s): I10 - Essential (primary) hypertension Category: Medical Code(s): I10 - Essential (primary) hypertension (5) Renal insufficiency Current visit: Yes Status: Acute Category: Medical Code(s): N28.9 - Disorder of kidney and ureter, unspecified (6) Atrial fibrillation Current visit: Yes Status: Acute Category: Medical Code(s): I48.91 - Unspecified atrial fibrillation - Assessment and plan all Dx Assessment and Plan for all problems:: WBC lower today, patient still on supplemental O2, continue current treatment. Discussed need for penitentiary anticoagulation.
--- NOTE | 2017-08-04 14:09 | P.CONPHA_ITS ---
[facility] Pharmacy VTE Monitoring - Patient Demographics Admission date: 08/03/17 Report Date: 08/04/17 Time: 14:08 Allergies/Adverse Reactions: Patient Allergies azithromycin Allergy (Intermediate, Verified 07/27/17 18:57) Hives Height: 1.68 m Weight: 115.694 kg Patient Problems: Current Active Problems Leukocytosis (Acute) Renal insufficiency (Acute) Atrial fibrillation (Acute) - VTE Risk Labs: VTE Related Lab Results Hgb 10.8 g/dL (12.2-16.2) L 08/04/17 06:09 Hct 33.8 % (37.0-47.0) L 08/04/17 06:09 Plt Count 154 K/mm3 (142-424) D 08/04/17 06:09 BUN 20 mg/dL (7-18) H 08/03/17 10:49 Creatinine 1.65 mg/dL (0.55-1.02) H 08/03/17 10:49 Estimated Creat Clear 26 mL/min (0-300) 08/03/17 10:49 Was VTE Risk Assessment Performed: Yes VTE Score: 3 VTE Risk Level: Low Risk - Prophylaxis VTE Prophylaxis Ordered?: Yes Pharmacologic Type: Enoxaparin
[2017-08-05] VITALS (13 sets, daily range): BP systolic 92–114; BP diastolic 48–65; PULSE 53–75; RESP 16–20; TEMP 36.4–36.7; O2SAT 89–96; BMI 41.0
--- NOTE | 2017-08-05 03:23 | PC.NURSE ---
no changes noted from previous assessment, pt has rested well this shift, SOA noted with activity, scattered wheezing noted throughout, O2 sats have remained at or above 90 on 2L NC, bowel sounds are active x4, vss, pt denies any pain, no acute distress noted at this time, call light in reach, will continue to monitor.
--- NOTE | 2017-08-05 08:24 | P.PN_ITS ---
Internal Medicine - PN: Subj *Date: 08/05/17 *Time: 08:22 Interval history: Patient feels a little better today, ate about half of her breakfast, less SOB today. Exam Vital signs and Labs for Last 24 Hours: Temp Pulse Resp BP Pulse Ox 98.0 F 69 20 102/48 95 08/05/17 08:01 08/05/17 08:01 08/05/17 08:01 08/05/17 08:01 08/05/17 08:01 Vital Signs Temp Pulse Pulse Pulse Resp BP Pulse Ox 08/05/17 08:01 98.0 F 69 69 20 102/48 95 08/05/17 07:03 73 95 08/05/17 04:00 97.9 F 61 20 107/59 96 08/05/17 03:07 89 L 08/05/17 00:00 97.7 F 69 18 95/59 95 08/04/17 23:55 89 08/04/17 20:30 95 08/04/17 20:00 97.1 F L 57 L 24 95/50 95 08/04/17 18:48 87 08/04/17 15:33 98.0 F 76 20 124/74 95 08/04/17 11:17 98.5 F 59 L 20 100/51 96 Intake and Output 08/04/17 08/05/17 08/05/17 19:59 03:59 11:59 Intake Total 720 / 720 Balance 720 / 720 Intake: Intake, Oral Amount 120 / 120 Intake, Total IV Amount 600 / 600 0.9 % Sodium Chloride 1,000 ml 600 / 600 @ 50 mls/hr IV .Q20H [facility] Rx#: [id number] Other: Number of Voids 1 Weight 255 lb 1 oz Patient Weight 08/05/17 11:59 Weight 255 lb 1 oz I & O for Last 24 hours: Intake & Output 08/02/17 08/03/17 08/04/17 08/05/17 11:59 11:59 11:59 11:59 Intake Total 600 / 600 720 / 720 Balance 600 / 600 720 / 720 Weight 255 lb 1 oz 255 lb 1 oz Microbiology Reports for the Last 24 Hours: Microbiology 08/03/17 10:49 Blood Blood Culture - Preliminary NO GROWTH AFTER 24 HOURS 08/03/17 10:49 Blood Blood Culture - Preliminary NO GROWTH AFTER 24 HOURS - Constitutional no acute distress - *Routine Respiratory Exam Present: crackles (right side, otherwise clear) - *Routine Cardiovascular Exam Present: RRR Assessment and Plan (1) Pneumonia Current visit: No Status: Acute Category: Medical Code(s): J18.9 - Pneumonia, unspecified organism (2) Hypoxia Current visit: No Status: Acute Category: Medical Code(s): R09.02 - Hypoxemia (3) Leukocytosis Current visit: Yes Status: Acute Category: Medical Code(s): D72.829 - Elevated white blood cell count, unspecified (4) HTN (hypertension) Current visit: No Status: Chronic Qualifiers: Hypertension type: essential hypertension Qualified Code(s): I10 - Essential (primary) hypertension Category: Medical Code(s): I10 - Essential (primary) hypertension (5) Renal insufficiency Current visit: Yes Status: Acute Category: Medical Code(s): N28.9 - Disorder of kidney and ureter, unspecified (6) Atrial fibrillation Current visit: Yes Status: Acute Category: Medical Code(s): I48.91 - Unspecified atrial fibrillation - Assessment and plan all Dx Assessment and Plan for all problems:: Improving, continue current treatment.
[2017-08-06] VITALS (13 sets, daily range): BP systolic 101–137; BP diastolic 49–64; PULSE 50–73; RESP 20; TEMP 36.3–37.1; O2SAT 92–97
--- NOTE | 2017-08-06 00:34 | PC.NURSE ---
tried to put hat in for urine measurement and she said she hadnt had one all the time she had been here, didnt know why she needed one now. So I didnt put one in
--- NOTE | 2017-08-06 06:03 | PC.NURSE ---
no changes noted from previous assessment, pt states she feels some better, scattered wheezing noted, pt has maintained O2 sats at or above 90 on 1.5 L NC, bowel sounds are active, pt denies pain, vss, no acute distress noted at this time, will continue to monitor.
--- NOTE | 2017-08-06 08:27 | HMH.ACPN ---
Internal Medicine - PN: Subj *Date: 08/06/17 *Time: 08:27 Exam Vital signs and Labs for Last 24 Hours: Temp Pulse Resp BP Pulse Ox 97.8 F 57 L 20 107/56 97 08/06/17 07:40 08/06/17 07:40 08/06/17 07:40 08/06/17 07:40 08/06/17 07:40 I & O for Last 24 hours: Intake & Output 08/03/17 08/04/17 08/05/17 08/06/17 23:59 23:59 23:59 23:59 Intake Total 600 / 600 960 / 960 600 / 600 Balance 600 / 600 960 / 960 600 / 600 Weight 115.694 kg 115.694 kg 115.694 kg Microbiology Reports for the Last 24 Hours: Microbiology 08/03/17 10:49 Blood Blood Culture - Preliminary NO GROWTH AFTER 48 HOURS 08/03/17 10:49 Blood Blood Culture - Preliminary NO GROWTH AFTER 48 HOURS Assessment and Plan (1) Pneumonia Current visit: No Status: Acute Category: Medical Code(s): J18.9 - Pneumonia, unspecified organism (2) Hypoxia Current visit: No Status: Acute Category: Medical Code(s): R09.02 - Hypoxemia (3) Leukocytosis Current visit: Yes Status: Acute Category: Medical Code(s): D72.829 - Elevated white blood cell count, unspecified (4) HTN (hypertension) Current visit: No Status: Chronic Qualifiers: Hypertension type: essential hypertension Qualified Code(s): I10 - Essential (primary) hypertension Category: Medical Code(s): I10 - Essential (primary) hypertension (5) Renal insufficiency Current visit: Yes Status: Acute Category: Medical Code(s): N28.9 - Disorder of kidney and ureter, unspecified (6) Atrial fibrillation Current visit: Yes Status: Acute Category: Medical Code(s): I48.91 - Unspecified atrial fibrillation The patient's infection will respond to the chosen ABx?: Yes Is the patient receiving the right drug, dose, and route?: Yes Could a more targeted ABx be ordered?: No
--- NOTE | 2017-08-06 09:05 | HMH.ACPN2 ---
Internal Medicine - PN: Subj *Date: 08/06/17 *Time: 09:07 Interval history: Patient with no new complaints today, feels better. Exam Vital signs and Labs for Last 24 Hours: Temp Pulse Resp BP Pulse Ox 97.8 F 57 L 20 107/56 97 08/06/17 07:40 08/06/17 07:40 08/06/17 07:40 08/06/17 07:40 08/06/17 07:40 Vital Signs Temp Pulse Pulse Pulse Pulse Resp BP 08/06/17 07:40 97.8 F 57 L 20 107/56 08/06/17 06:07 50 L 08/06/17 04:00 98.0 F 54 L 20 08/06/17 03:29 08/06/17 00:00 97.4 F L 67 20 08/05/17 23:49 67 08/05/17 20:00 97.5 F L 63 20 08/05/17 18:50 66 08/05/17 16:00 97.7 F 53 L 53 L 16 112/65 08/05/17 11:44 98.0 F 57 L 57 L 16 92/49 08/05/17 11:39 69 08/05/17 11:13 98.0 F 57 L 57 L 16 92/49 BP Pulse Ox 08/06/17 07:40 97 08/06/17 06:07 92 L 08/06/17 04:00 101/51 96 08/06/17 03:29 92 L 08/06/17 00:00 126/49 94 L 08/05/17 23:49 08/05/17 20:00 114/62 92 L 08/05/17 18:50 08/05/17 16:00 96 08/05/17 11:44 95 08/05/17 11:39 08/05/17 11:13 95 Intake and Output 08/05/17 08/06/17 08/06/17 19:59 03:59 11:59 Intake Total 240 / 240 600 / 600 Balance 240 / 240 600 / 600 Intake: Intake, Oral Amount 240 / 240 Intake, Total IV Amount 600 / 600 0.9 % Sodium Chloride 1,000 ml 600 / 600 @ 50 mls/hr IV .Q20H [facility] Rx#: [id number] Other: Number of Voids 1 Number of Unmeasured Voids 1 1 2 Weight 255 lb 0.986 oz Patient Weight 08/06/17 11:59 Weight 255 lb 0.986 oz I & O for Last 24 hours: Intake & Output 08/03/17 08/04/17 08/05/17 08/06/17 11:59 11:59 11:59 11:59 Intake Total 600 / 600 720 / 720 840 / 840 Balance 600 / 600 720 / 720 840 / 840 Weight 255 lb 1 oz 255 lb 1 oz 255 lb 0.986 oz Microbiology Reports for the Last 24 Hours: Microbiology 08/03/17 10:49 Blood Blood Culture - Preliminary NO GROWTH AFTER 48 HOURS 08/03/17 10:49 Blood Blood Culture - Preliminary NO GROWTH AFTER 48 HOURS - Constitutional no acute distress - *Routine Respiratory Exam Present: crackles (few in right base). Absent: wheezes - *Routine Cardiovascular Exam Present: RRR, bradycardia - *Routine Extremities Exam Absent: cyanosis, clubbing Assessment and Plan (1) Pneumonia Current visit: No Status: Acute Category: Medical Code(s): J18.9 - Pneumonia, unspecified organism (2) Hypoxia Current visit: No Status: Acute Category: Medical Code(s): R09.02 - Hypoxemia (3) Leukocytosis Current visit: Yes Status: Acute Category: Medical Code(s): D72.829 - Elevated white blood cell count, unspecified (4) HTN (hypertension) Current visit: No Status: Chronic Qualifiers: Hypertension type: essential hypertension Qualified Code(s): I10 - Essential (primary) hypertension Category: Medical Code(s): I10 - Essential (primary) hypertension (5) Renal insufficiency Current visit: Yes Status: Acute Category: Medical Code(s): N28.9 - Disorder of kidney and ureter, unspecified (6) Atrial fibrillation Current visit: Yes Status: Acute Category: Medical Code(s): I48.91 - Unspecified atrial fibrillation - Assessment and plan all Dx Assessment and Plan for all problems:: Patient slowly improving, cont. Invanz for pneumonia. She is starting day 4 of 10. Still on supplemental O2. Consult care management for post hospital care/possible swing bed.
--- NOTE | 2017-08-06 11:27 | HMH.PTEV ---
Physical Therapy Evaluation Rehab PT IP Evaluation Start: 08/06/17 10:36 Freq: ONCE Status: Active Protocol: Document 08/06/17 11:23 PHORRANDOLPH (Rec: 08/06/17 11:27 PHORNE [id number]) Subjective/History History History 81 yof adm to [facility] with SOA due to PNA. Subjective Subjective Pt with no c/o this am. Rehab PT IP Eval Objective Appearance Patient Behavior Appropriate Patient Orientation Person Place Time Difficulty following instructions none Speech Pattern Clear Appropriate Ambulation Patient Able to Ambulate Yes Ambulation Observation IP General Gait Pattern Observation Wide Based Gait Ambulation Distance (feet) 30 Ambulation Assistive Device None Balance Ability to Arise Able, w/o using arms Sitting Balance Steady, safe Standing Balance Narrow stance w/o support Dynamic Sitting Balance Ability Good Dynamic Standing Balance Ability Good Transfers Bed Transfer Ability Independent Chair Transfer Ability Independent Sit to Stand Bed Transfer Ability Independent Sit to Stand Chair Transfer Ability Independent ROM All Extremities PT ROM Status WFL MMT All Extremities PT MMT WFL Rehab PT IP prob,goals,plan Problems Date of Evaluation: 08/06/17 Rehab Potential Rehab Potential Good Discharge Plan PT Discharge Plan Pt is appropriate to return home once medically stable. May benefit from shower chair and home health therapy. G -code Required Yes Eval Complexity Eval Charge Codes 58610 - Moderate Complexity G Codes PT Current Status Mobility PT Current Status Modifier CI-At least 1% but less than 20% impaired, limited or restricted PT Goal Status Mobility PT Goal Status Modifer CI-At least 1% but less than 20% impaired, limited or restricted PHYSICIAN CERTIFICATION: I certify the specified therapy services for Lucila Mcneill are required, authorized, and reviewed every 30 days.
[2017-08-06 13:07] LABS: Anion Gap 11.9 mEq/L (5-15); Blood Urea Nitrogen 21 mg/dL (7-18); Carbon Dioxide 30 mmol/L (21.0-32.0); Chloride 108 mmol/L (98-107); Creatinine Clearance Estimated 22 mL/min (0-300); Creatinine,Serum 1.91 mg/dL (0.55-1.02); Estimated Glomerular Filt Rate 25 ml/min (>60); GFR (African American) 31 ML/MIN (>60); Glucose 133 mg/dL (74-106); Potassium 4.9 mmoL/L (3.5-5.1); Sodium 145 mmol/L (136-145)
[2017-08-06 13:21] LABS: Basophils % 0.2 % (0.1-2.0); Eosinophils % 3.3 % (0.1-12.0); Hematocrit 31.4 % (37.0-47.0); Hemoglobin 9.6 g/dL (12.2-16.2); Lymphocytes % 17.7 K/mm3 (10-50); Mean Corpuscular HGB Conc 30.7 g/dL (31.8-35.4); Mean Corpuscular Hemoglobin 29.6 pg (27.0-31.2); Mean Corpuscular Volume 96.4 fl (81-99); Mean Platelet Volume 9.4 fl (7.4-10.4); Monocytes % 5.5 % (1.7-9.3); Neutrophils # 3.4 K/mm3 (1.8-7.8); Neutrophils % 73.2 % (37.0-80.0); Platelet Count 190 K/mm3 (142-424); Red Blood Count 3.25 M/mm3 (4.20-5.40); Red Cell Distribution Width 14.8 % (11.5-17.5); White Blood Count 4.7 K/mm3 (4.8-10.8)
[2017-08-06 13:22] LABS: Eosinophils # 0.2 K/mm3 (0.0-0.4); Lymphocytes # 0.8 K/mm3 (0.7-4.5); Monocytes # 0.3 K/mm3 (0.1-1.0)
--- NOTE | 2017-08-06 13:39 | HMH.PTEV ---
Physical Therapy Evaluation Rehab PT IP Evaluation Start: 08/06/17 10:36 Freq: ONCE Status: Active Protocol: Document 08/06/17 11:23 PHORRANDOLPH (Rec: 08/06/17 11:27 PHORNE [id number]) Subjective/History History History 81 yof adm to [facility] with SOA due to PNA. Subjective Subjective Pt with no c/o this am. Rehab PT IP Eval Objective Appearance Patient Behavior Appropriate Patient Orientation Person Place Time Difficulty following instructions none Speech Pattern Clear Appropriate Ambulation Patient Able to Ambulate Yes Ambulation Observation IP General Gait Pattern Observation Wide Based Gait Ambulation Distance (feet) 30 Ambulation Assistive Device None Balance Ability to Arise Able, w/o using arms Sitting Balance Steady, safe Standing Balance Narrow stance w/o support Dynamic Sitting Balance Ability Good Dynamic Standing Balance Ability Good Transfers Bed Transfer Ability Independent Chair Transfer Ability Independent Sit to Stand Bed Transfer Ability Independent Sit to Stand Chair Transfer Ability Independent ROM All Extremities PT ROM Status WFL MMT All Extremities PT MMT WFL Rehab PT IP prob,goals,plan Problems Date of Evaluation: 08/06/17 Rehab Potential Rehab Potential Good Discharge Plan PT Discharge Plan Pt is appropriate to return home once medically stable. May benefit from shower chair and home health therapy. G -code Required Yes Eval Complexity Eval Charge Codes 29832 - Moderate Complexity G Codes PT Current Status Mobility PT Current Status Modifier CI-At least 1% but less than 20% impaired, limited or restricted PT Goal Status Mobility PT Goal Status Modifer CI-At least 1% but less than 20% impaired, limited or restricted PHYSICIAN CERTIFICATION: I certify the specified therapy services for Lucila Mcneill are required, authorized, and reviewed every 30 days.
--- NOTE | 2017-08-06 15:16 | DIET.NUTRFU ---
Pt reports her appetite is never good, that she only takes a few bites at any time. She also reports to be unable to lose weight. readmission. regular diet. PO intakes recorded at 100%, meal observed pt consumed approx 50%. Pt encouraged to voice preferences. Monitor for overall intakes and readiness for education.
[2017-08-07] VITALS (10 sets, daily range): BP systolic 99–151; BP diastolic 51–77; PULSE 55–77; RESP 18–20; TEMP 36.3–36.8; O2SAT 89–97
--- NOTE | 2017-08-07 05:26 | PC.NURSE ---
LAYING IN BED RESTING AT THIS TIME. DENIES ANY PAIN OR SOA. lUNGS HAVE BILAT WHEEZES. RESP EVEN AND NONLABORED. HAS SLEPT MOST OF NIGHT.IV IS PATENT. HAS NO NEEDS AT THIS TIME. BED LOCKED IN LOW POSITION, SIDE RALES UP X 2. CALL LIGHT WITH IN REACH.
--- NOTE | 2017-08-07 06:27 | PC.NURSE ---
PATIENT HAS TEDS OFF AT THIS TIME
--- NOTE | 2017-08-07 08:38 | HMH.ACPN2 ---
Internal Medicine - PN: Subj *Date: 08/07/17 *Time: 08:38 Interval history: Patient with no new complaints today. Exam Vital signs and Labs for Last 24 Hours: Temp Pulse Resp BP Pulse Ox 98.0 F 62 18 135/56 89 L 08/07/17 04:00 08/07/17 05:51 08/07/17 04:00 08/07/17 04:00 08/07/17 06:53 Laboratory Results - last 24 hr 08/06/17 12:53: WBC 4.7 L D, RBC 3.25 L, Hgb 9.6 L, Hct 31.4 L, MCV 96.4, MCH 29.6, MCHC 30.7 L, RDW 14.8, Plt Count 190, MPV 9.4, Neut % (Auto) 73.2, Lymph % (Auto) 17.7, [place] % (Auto) 5.5, Eos % (Auto) 3.3, Baso % (Auto) 0.2, Neut # (Auto) 3.4, Lymph # (Auto) 0.8, [place] # (Auto) 0.3, Eos # (Auto) 0.2, Baso # (Auto) 0.0 08/06/17 12:53: Sodium 145, Potassium 4.9, Chloride 108 H, Carbon Dioxide 30, Anion Gap 11.9, BUN 21 H, Creatinine 1.91 H, Estimated Creat Clear 22, Estimated GFR 25 L, Est GFR ( Amer) 31 L, Glucose 133 H Vital Signs Temp Pulse Pulse Resp BP Pulse Ox 08/07/17 06:53 89 L 08/07/17 05:51 57 L 93 L 08/07/17 04:00 98.0 F 64 18 135/56 96 08/06/17 23:59 73 08/06/17 21:13 97 08/06/17 20:00 98.2 F 66 20 137/64 97 08/06/17 19:40 92 L 08/06/17 16:39 59 L 92 L 08/06/17 15:23 98.7 F 57 L 20 115/55 96 08/06/17 11:19 60 08/06/17 09:00 96 Intake and Output 08/06/17 08/07/17 08/07/17 19:59 03:59 11:59 Intake Total 2240 / 2240 240 / 240 Output Total 1400 / 1400 Balance 840 / 840 240 / 240 Intake: Intake, Oral Amount 2240 / 2240 240 / 240 Output: Output, Urine Amount 1400 / 1400 Other: Number of Voids 5 1 Number of Unmeasured Voids 1 I & O for Last 24 hours: Intake & Output 08/04/17 08/05/17 08/06/17 08/07/17 11:59 11:59 11:59 11:59 Intake Total 600 / 600 720 / 720 840 / 840 2480 / 2480 Output Total 1400 / 1400 Balance 600 / 600 720 / 720 840 / 840 1080 / 1080 Weight 255 lb 1 oz 255 lb 0.986 oz Microbiology Reports for the Last 24 Hours: Microbiology 08/03/17 10:49 Blood Blood Culture - Preliminary NO GROWTH AFTER 72 HOURS 08/03/17 10:49 Blood Blood Culture - Preliminary NO GROWTH AFTER 72 HOURS - *Routine Respiratory Exam Present: crackles (right base) - *Routine Cardiovascular Exam Present: RRR, bradycardia Assessment and Plan (1) Pneumonia Current visit: No Status: Acute Category: Medical Code(s): J18.9 - Pneumonia, unspecified organism (2) Hypoxia Current visit: No Status: Acute Category: Medical Code(s): R09.02 - Hypoxemia (3) Leukocytosis Current visit: Yes Status: Acute Category: Medical Code(s): D72.829 - Elevated white blood cell count, unspecified (4) HTN (hypertension) Current visit: No Status: Chronic Qualifiers: Hypertension type: essential hypertension Qualified Code(s): I10 - Essential (primary) hypertension Category: Medical Code(s): I10 - Essential (primary) hypertension (5) Renal insufficiency Current visit: Yes Status: Acute Category: Medical Code(s): N28.9 - Disorder of kidney and ureter, unspecified (6) Atrial fibrillation Current visit: Yes Status: Acute Category: Medical Code(s): I48.91 - Unspecified atrial fibrillation - Assessment and plan all Dx Assessment and Plan for all problems:: Check CXR today, attempt to wean O2, awaiting care management update about swing bed.
--- NOTE | 2017-08-07 08:42 | P.PN_ITS ---
Internal Medicine - PN: Subj *Date: 08/07/17 *Time: 08:38 Interval history: Patient with no new complaints today. Exam Vital signs and Labs for Last 24 Hours: Temp Pulse Resp BP Pulse Ox 98.0 F 62 18 135/56 89 L 08/07/17 04:00 08/07/17 05:51 08/07/17 04:00 08/07/17 04:00 08/07/17 06:53 Laboratory Results - last 24 hr 08/06/17 12:53: WBC 4.7 L D, RBC 3.25 L, Hgb 9.6 L, Hct 31.4 L, MCV 96.4, MCH 29.6, MCHC 30.7 L, RDW 14.8, Plt Count 190, MPV 9.4, Neut % (Auto) 73.2, Lymph % (Auto) 17.7, [place] % (Auto) 5.5, Eos % (Auto) 3.3, Baso % (Auto) 0.2, Neut # ( Auto) 3.4, Lymph # (Auto) 0.8, [place] # (Auto) 0.3, Eos # (Auto) 0.2, Baso # (Auto ) 0.0 08/06/17 12:53: Sodium 145, Potassium 4.9, Chloride 108 H, Carbon Dioxide 30, Anion Gap 11.9, BUN 21 H, Creatinine 1.91 H, Estimated Creat Clear 22, Estimated GFR 25 L, Est GFR ( Amer) 31 L, Glucose 133 H Vital Signs Temp Pulse Pulse Resp BP Pulse Ox 08/07/17 06:53 89 L 08/07/17 05:51 57 L 93 L 08/07/17 04:00 98.0 F 64 18 135/56 96 08/06/17 23:59 73 08/06/17 21:13 97 08/06/17 20:00 98.2 F 66 20 137/64 97 08/06/17 19:40 92 L 08/06/17 16:39 59 L 92 L 08/06/17 15:23 98.7 F 57 L 20 115/55 96 08/06/17 11:19 60 08/06/17 09:00 96 Intake and Output 08/06/17 08/07/17 08/07/17 19:59 03:59 11:59 Intake Total 2240 / 2240 240 / 240 Output Total 1400 / 1400 Balance 840 / 840 240 / 240 Intake: Intake, Oral Amount 2240 / 2240 240 / 240 Output: Output, Urine Amount 1400 / 1400 Other: Number of Voids 5 1 Number of Unmeasured Voids 1 I & O for Last 24 hours: Intake & Output 08/04/17 08/05/17 08/06/17 08/07/17 11:59 11:59 11:59 11:59 Intake Total 600 / 600 720 / 720 840 / 840 2480 / 2480 Output Total 1400 / 1400 Balance 600 / 600 720 / 720 840 / 840 1080 / 1080 Weight 255 lb 1 oz 255 lb 0.986 oz Microbiology Reports for the Last 24 Hours: Microbiology 08/03/17 10:49 Blood Blood Culture - Preliminary NO GROWTH AFTER 72 HOURS 08/03/17 10:49 Blood Blood Culture - Preliminary NO GROWTH AFTER 72 HOURS - *Routine Respiratory Exam Present: crackles (right base) - *Routine Cardiovascular Exam Present: RRR, bradycardia Assessment and Plan (1) Pneumonia Current visit: No Status: Acute Category: Medical Code(s): J18.9 - Pneumonia, unspecified organism (2) Hypoxia Current visit: No Status: Acute Category: Medical Code(s): R09.02 - Hypoxemia (3) Leukocytosis Current visit: Yes Status: Acute Category: Medical Code(s): D72.829 - Elevated white blood cell count, unspecified (4) HTN (hypertension) Current visit: No Status: Chronic Qualifiers: Hypertension type: essential hypertension Qualified Code(s): I10 - Essential (primary) hypertension Category: Medical Code(s): I10 - Essential (primary) hypertension (5) Renal insufficiency Current visit: Yes Status: Acute Category: Medical Code(s): N28.9 - Disorder of kidney and ureter, unspecified (6) Atrial fibrillation Current visit: Yes Status: Acute Category: Medical Code(s): I4
--- NOTE | 2017-08-07 09:05 | XR_ITS ---
XR chest 2V HISTORY: ITS.REASON: pneumonia ORDERING PHYSICIAN: Michael Westfall MD PATIENT AGE: 81 years COMPARISON: 08/03/2017 FINDINGS: Prominent tortuosity of the lower thoracic aorta once again noted. Previously noted pneumonia in right lower lobe appears slightly worse on today's study with persistent small right effusion. The remaining lungs are clear. IMPRESSION: Slight worsening right lower lobe pneumonia with small effusion.
--- NOTE | 2017-08-07 15:15 | CARE MANAGER ---
STILL WAITING GLASS ARTIST FROM [facility] ABOUT SWINGBED STATUS. THE REVIEWING NURSE HAD TO SEND THE INFORMATION TO THE MD FOR REVIEW FOR IV ANTIBIOTICS AND OXYGEN THERAPY.
--- NOTE | 2017-08-07 15:42 | PC.NURSE ---
PT STABLE. DENIES ANY COUGHING OR SOA. SITS UP IN CHAIR MOST OF SHIFT AND IS NOW SITTING ON THE SIDE OF THE BED. LUNG SOUNDS ARE CLEAR UPON REASSESSMENT WHEREAS FINE CRACKLES WERE NOTED IN RLL THIS MORNING. ASKED PT TO REMOVE NASAL CANNULA AT THIS TIME TO ASSESS ROOM AIR. WILL RETURN IN 30 MIN TO REASSESS SAT.
--- NOTE | 2017-08-07 16:07 | PC.NURSE ---
pt's room air sats is 97%
--- NOTE | 2017-08-07 19:58 | PC.NURSE ---
rn notified of all vital signs
--- NOTE | 2017-08-07 22:37 | PC.NURSE ---
patient refused to change iv site. Due to be changed today. States she may get to leave tomorrow and does not want to go through the pain of new stick when current iv is working properly. Educated patient on s/sx of infection. Verbalized understanding.
[2017-08-08] VITALS (14 sets, daily range): BP systolic 104–135; BP diastolic 57–97; PULSE 57–83; RESP 18–20; TEMP 36.6–37.4; O2SAT 88–96
--- NOTE | 2017-08-08 04:50 | PC.NURSE ---
PATIENT LAYING IN BED RESTING AT THIS TIME. HAS SLEPT MOST OF SHIFT. DENIES ANY PAIN OR SOA. HAS BEEN UP TO RESTROOM THROUGH THE NIGHT. TOLERATED WELL. LUNGS ARE CLEAR. IV IS PATENT. STATES HAS NO NEEDS. BED LOCKED IN LOW POSITION, SIDE RALES UP X 2. CALL LIGHT WITHIN REACH. WILL CONTINUE TO MONITOR.
--- NOTE | 2017-08-08 06:14 | CARE MANAGER ---
MS BRIGHT WAS DENIED SNF LEVEL OF CARE BY THE [facility].
--- NOTE | 2017-08-08 08:26 | HMH.ACPN2 ---
<Kelsey Yeung - Last Filed: 08/08/17 08:37> Internal Medicine - PN: Subj *Date: 08/08/17 *Time: 08:37 Interval history: Feels better; remains off of O2; slept some; has ambulated in the room and sits in the chair most of the day; eating a little better; no stool in a couple of days; voiding QS Exam Vital signs and Labs for Last 24 Hours: Temp Pulse Resp BP Pulse Ox 97.9 F 72 18 104/61 92 L 08/08/17 07:51 08/08/17 07:51 08/08/17 07:51 08/08/17 07:51 08/08/17 07:51 I & O for Last 24 hours: Intake & Output 08/05/17 08/06/17 08/07/17 08/08/17 11:59 11:59 11:59 11:59 Intake Total 720 / 720 840 / 840 2720 / 2720 1080 / 1080 Output Total 1400 / 1400 Balance 720 / 720 840 / 840 1320 / 1320 1080 / 1080 Weight 255 lb 1 oz 255 lb 0.986 oz 264 lb 3 oz Microbiology Reports for the Last 24 Hours: Microbiology 08/03/17 10:49 Blood Blood Culture - Preliminary NO GROWTH AFTER 4 DAYS 08/03/17 10:49 Blood Blood Culture - Preliminary NO GROWTH AFTER 4 DAYS - Constitutional no acute distress - *Routine Respiratory Exam Absent: accessory muscle use - *Routine Cardiovascular Exam Present: RRR - *Routine Abdominal Exam Present: soft, normoactive bowel sounds. Absent: tenderness - *Routine Extremities Exam Present: edema Comments: NERY walsh on - *Routine Neurological Exam Present: alert, oriented X3 Assessment and Plan (1) Pneumonia Current visit: No Status: Acute Category: Medical Code(s): J18.9 - Pneumonia, unspecified organism (2) Hypoxia Current visit: No Status: Acute Category: Medical Code(s): R09.02 - Hypoxemia (3) Leukocytosis Current visit: Yes Status: Acute Category: Medical Code(s): D72.829 - Elevated white blood cell count, unspecified (4) HTN (hypertension) Current visit: No Status: Chronic Qualifiers: Hypertension type: essential hypertension Qualified Code(s): I10 - Essential (primary) hypertension Category: Medical Code(s): I10 - Essential (primary) hypertension (5) Renal insufficiency Current visit: Yes Status: Acute Category: Medical Code(s): N28.9 - Disorder of kidney and ureter, unspecified (6) Atrial fibrillation Current visit: Yes Status: Acute Category: Medical Code(s): I48.91 - Unspecified atrial fibrillation - Assessment and plan all Dx Assessment and Plan for all problems:: continue current care; encouraged ambulation; swing bed denied <Michael Westfall - Last Filed: 08/08/17 08:45> Internal Medicine - PN: Subj *Date: 08/08/17 *Time: 08:44 Exam Vital signs and Labs for Last 24 Hours: Temp Pulse Resp BP Pulse Ox 97.9 F 72 18 104/61 92 L 08/08/17 07:51 08/08/17 07:51 08/08/17 07:51 08/08/17 07:51 08/08/17 07:51 I & O for Last 24 hours: Intake & Output 08/05/17 08/06/17 08/07/17 08/08/17 11:59 11:59 11:59 11:59 Intake Total 720 / 720 840 / 840 2720 / 2720 1080 / 1080 Output Total 1400 / 1400 Balance 720 / 720 840 / 840 1320 / 1320 1080 / 1080 Weight 255 lb 1 oz 255 lb 0.986 oz 264 lb 3 oz Microbiology Reports for the Last 24 Hours: Microbiology 08/03/17 10:49 Blood Blood Culture - Preliminary NO GROWTH AFTER 4 DAYS 08/03/17 10:49 Blood Blood Culture - Preliminary NO GROWTH AFTER 4 DAYS Assessment and Plan (1) Pneumonia Current visit: No Status: Acute Category: Medical Code(s): J18.9 - Pneumonia, unspecified organism (2) Hypoxia Current visit: No Status: Acute Category: Medical Code(s): R09.02 - Hypoxemia (3) Leukocytosis Current visit: Yes Status: Acute Category: Medical Code(s): D72.829 - Elevated white blood cell count, unspecified (4) HTN (hypertension) Current visit: No Status: Chronic Qualifiers: Hypertension type: essential hypertension Qualified Code(
--- NOTE | 2017-08-08 15:47 | PC.NURSE ---
Pt resting in bed. Has been up to chair and to and from bathroom with no issues noted. No change in plan of care, continuing IV antibiotics. Call light in reach, will continue to monitor
--- NOTE | 2017-08-08 15:49 | DIET.NUTRFU ---
Po intakes have been 100% for past 3 meals. new weight 264 lbs, weight is up 9 lbs from admission. No nutritional concerns.
--- NOTE | 2017-08-08 18:53 | PC.NURSE ---
Pt states she feels shaky inside. BP taken 192/82 hr 77, glucose is 226.. MD Greer states to continue to monitor pt. Went back to reassess pt and pt stated that she was feeling better. Will continue to monitor
[2017-08-09] VITALS: BP 144/60; PULSE 73; RESP 20; TEMP 37; O2SAT 91
--- NOTE | 2017-08-09 02:38 | PC.NURSE ---
pt states she feels good today, denies pain and SOA, pt tolerating room air well throughout shift, pt has been up to the chair and ambulating well to the bathroom, pt is currently resting and has slept well throughout shift, breath sounds are clear, pt stated she has not had a bowel movement in a while, bowel sounds are active, vss, no acute distress noted a this time, will continue to monitor.
[2017-08-09 04:00] VITALS: BP 139/70; PULSE 70; RESP 18; TEMP 37.1; O2SAT 91
[2017-08-09 06:26] VITALS: PULSE 56; PULSE 57; O2SAT 89
[2017-08-09 06:57] LABS: Basophils % 0.5 % (0.1-2.0); Eosinophils # 0.1 K/mm3 (0.0-0.4); Lymphocytes # 0.8 K/mm3 (0.7-4.5); Lymphocytes % 28.5 K/mm3 (10-50); Mean Corpuscular HGB Conc 31.3 g/dL (31.8-35.4); Mean Corpuscular Hemoglobin 29.8 pg (27.0-31.2); Mean Corpuscular Volume 95.3 fl (81-99); Monocytes # 0.2 K/mm3 (0.1-1.0); Monocytes % 6.1 % (1.7-9.3); Neutrophils # 1.7 K/mm3 (1.8-7.8); Neutrophils % 60.9 % (37.0-80.0); Platelet Count 199 K/mm3 (142-424); Red Blood Count 3.09 M/mm3 (4.20-5.40); Red Cell Distribution Width 14.4 % (11.5-17.5); White Blood Count 2.7 K/mm3 (4.8-10.8)
[2017-08-09 07:14] LABS: Anion Gap 10.6 mEq/L (5-15); Carbon Dioxide 28 mmol/L (21.0-32.0); Chloride 110 mmol/L (98-107); Creatinine Clearance Estimated 30 mL/min (0-300); Glucose 148 mg/dL (74-106); Potassium 4.6 mmoL/L (3.5-5.1); Sodium 144 mmol/L (136-145)
[2017-08-09 07:33] LABS: Blood Urea Nitrogen 12 mg/dL (7-18); Creatinine,Serum 1.42 mg/dL (0.55-1.02); Estimated Glomerular Filt Rate 36 ml/min (>60); GFR (African American) 43 ML/MIN (>60)
[2017-08-09 07:41] LABS: Hemoglobin 9.2 g/dL (12.2-16.2)
[2017-08-09 07:42] LABS: Hematocrit 29.5 % (37.0-47.0)
[2017-08-09 08:00] VITALS: BP 118/59; PULSE 74; RESP 20; TEMP 36.1; O2SAT 94
--- NOTE | 2017-08-09 08:59 | HMH.ACPN2 ---
Internal Medicine - PN: Subj *Date: 08/09/17 *Time: 08:59 Interval history: Patient with no new complaints today. Exam Vital signs and Labs for Last 24 Hours: Temp Pulse Resp BP Pulse Ox 98.7 F 57 L 18 139/70 89 L 08/09/17 04:00 08/09/17 06:26 08/09/17 04:00 08/09/17 04:00 08/09/17 06:26 Laboratory Results - last 24 hr 08/09/17 06:40: WBC 2.7 L D, RBC 3.09 L, Hgb 9.2 L, Hct 29.5 L, MCV 95.3, MCH 29.8, MCHC 31.3 L, RDW 14.4, Plt Count 199, MPV 9.0, Neut % (Auto) 60.9, Lymph % (Auto) 28.5, [place] % (Auto) 6.1, Eos % (Auto) 4.0, Baso % (Auto) 0.5, Neut # (Auto) 1.7 L, Lymph # (Auto) 0.8, [place] # (Auto) 0.2, Eos # (Auto) 0.1, Baso # (Auto) 0.0 08/09/17 06:40: Sodium 144, Potassium 4.6, Chloride 110 H, Carbon Dioxide 28, Anion Gap 10.6, BUN 12 D, Creatinine 1.42 H D, Estimated Creat Clear 30, Estimated GFR 36 L, Est GFR ( Amer) 43 L D, Glucose 148 H Vital Signs Temp Pulse Pulse Pulse Resp BP Pulse Ox 08/09/17 06:26 57 L 89 L 08/09/17 04:00 98.7 F 70 18 139/70 91 L 08/09/17 00:00 98.6 F 73 20 144/60 91 L 08/08/17 23:42 79 08/08/17 20:45 91 L 08/08/17 20:00 98.5 F 68 18 134/76 89 L 08/08/17 16:49 67 92 L 08/08/17 16:00 99.3 F 67 18 135/74 93 L 08/08/17 12:00 63 18 131/97 96 08/08/17 10:50 57 L Intake and Output 08/08/17 08/09/17 08/09/17 19:59 03:59 11:59 Intake Total 770 / 770 120 / 120 Balance 770 / 770 120 / 120 Intake: Intake, Oral Amount 720 / 720 120 / 120 Intake, Total IV Amount 50 / 50 0.9 % Sodium Chloride 1,000 ml 0 / 0 @ 50 mls/hr IV .Q20H [facility] Rx#: [id number] Ertapenem Sodium 0.5 gm In 0.9 50 / 50 % Sodium Chloride 50 ml @ 100 mls/hr IV Q24H [facility] Rx#:[id number] Other: Number of Voids 6 Number of Unmeasured Voids 4 I & O for Last 24 hours: Intake & Output 08/06/17 08/07/17 08/08/17 08/09/17 11:59 11:59 11:59 11:59 Intake Total 840 / 840 2720 / 2720 1080 / 1080 890 / 890 Output Total 1400 / 1400 Balance 840 / 840 1320 / 1320 1080 / 1080 890 / 890 Weight 255 lb 0.986 oz 264 lb 3 oz Microbiology Reports for the Last 24 Hours: Microbiology 08/03/17 10:49 Blood Blood Culture - Final NO GROWTH AFTER 5 DAYS 08/03/17 10:49 Blood Blood Culture - Final NO GROWTH AFTER 5 DAYS - Constitutional no acute distress (conversant) - *Routine Respiratory Exam Present: crackles (rare, lungs are basically clear) - *Routine Cardiovascular Exam Present: RRR - *Routine Neurological Exam Present: alert, oriented X3 Assessment and Plan (1) Pneumonia Current visit: No Status: Acute Category: Medical Code(s): J18.9 - Pneumonia, unspecified organism (2) Hypoxia Current visit: No Status: Acute Category: Medical Code(s): R09.02 - Hypoxemia (3) Leukocytosis Current visit: Yes Status: Acute Category: Medical Code(s): D72.829 - Elevated white blood cell count, unspecified (4) HTN (hypertension) Current visit: No Status: Chronic Qualifiers: Hypertension type: essential hypertension Qualified Code(s): I10 - Essential (primary) hypertension Category: Medical Code(s): I10 - Essential (primary) hypertension (5) Renal insufficiency Current visit: Yes Status: Acute Category: Medical Code(s): N28.9 - Disorder of kidney and ureter, unspecified (6) Atrial fibrillation Current visit: Yes Status: Acute Category: Medical Code(s): I48.91 - Unspecified atrial fibrillation - Assessment and plan all Dx Assessment and Plan for all problems:: Continue to try and wean from supplemental oxygen, sat 89% now on RA.
[2017-08-09 12:00] VITALS: BP 115/52; PULSE 54; RESP 20; TEMP 36.6; O2SAT 92
--- NOTE | 2017-08-09 13:41 | SW/DCPLANNER ---
RECEIVED REFERRAL FOR THIS PATIENT FOR HOME 02... I WENT IN AND HAD A LONG TALK WITH HER ABOUT HER DISCHARGE PLANS.. SHE IS GOING TO NEED SOME ADDITIONAL DAYS OF IV INVANZ AND SHE QUALIFIED FOR HOME OXYGEN AND I SET IT UP WITH [facility] FOR A PORTABLE TANK TO BE DELIVERED TO THE HOSPITAL PRIOR TO DISCHARGE, SHE IS GOING TO RETURN BACK TO THE OUT PATIENT DEPT AND FINISH UP HER DAYS OF INVANZ AND SEE DR FALK IN HIS OFFICE UPON COMPLETION OF ANTIBIOTIC TX FOR A CHEST X-RAY TO MAKE SURE THE PNEUMONIA IS RESOLVED. PATIENT STATED HER DAUGHTER WILL BE BRINGING HER BACK HERE [facility]..
--- NOTE | 2017-08-09 14:15 | PC.NURSE ---
IV LEFT IN PLACE PER DR. FALK FOR OUT PATIENT ANTIBOTICS
--- NOTE | 2017-08-13 14:14 | HMH.DCSUM ---
General - General Admission date: 08/03/17 Discharge date: 08/09/17 HPI HPI: Ms. Mcneill is a 81 year old female who presented to the office of [facility] today for her hospital f/u for influenza and pneumonia. Pt states that she still feels horrible and states that she will occasionally cough up sputum that is slightly yellow. She has had continued nasal congestion and chest tightness. She has been short of breath for 2 weeks and her oxygen today in the office ranged from 88-93% on RA. She has had a headache for 2 weeks, body aches for 2 weeks, and has been extremely fatigued. She was so fatigued this am she could hardly get up and move and she was afraid she was going to pass out. She has been nauseated. Her WBC has increased and she was admitted again for failing outpatient therapy for pneumonia. Objective Vital signs: Temp Pulse Resp BP Pulse Ox 97.9 F 54 L 20 115/52 92 L 08/09/17 12:00 08/09/17 12:00 08/09/17 12:00 08/09/17 12:08/09/17 12:00 Narrative: - Constitutional Comments: Does not appear to feel well - *Routine HEENT Exam Head: Present: normocephalic, atraumatic Eye: Present: EOMI, PERRL ENT: Present: mucous membranes dry - *Routine Neck Exam Present: supple, full ROM - *Routine Respiratory Exam Present: wheezes. Absent: crackles - *Routine Cardiovascular Exam Present: RRR - *Routine Abdominal Exam Present: soft, normoactive bowel sounds. Absent: tenderness - *Routine Extremities Exam Absent: edema - *Routine Skin Exam Present: intact - *Routine Neurological Exam Present: alert, oriented X3 Hospital Course Hospital Course: Her CXR showed a persistent but improving RLL pneumonia. She was started on ertapenem and nebs after failing outpatient therapy. The patient improved slowly throughout her stay. She did qualify for home O2. A swing bed admission was denied therefore she was stable to be discharged home and will come back to [facility] daily for Invanz. She will need a CXR on 08/12/17 and an office f/u on 08/13/17. DS: Diagnosis - Discharge Diagnosis (1) Pneumonia Status: Acute (2) Hypoxia Status: Acute (3) Leukocytosis Status: Acute (4) HTN (hypertension) Status: Chronic (5) Renal insufficiency Status: Acute Meds Home Medications Medication Instructions Recorded Confirmed Type Lisinopril [Zestril 10mg Tab] 10 mg PO DAILY 08/03/17 08/13/17 History Metoprolol Tartrate [Lopressor 12.5 mg PO BID 08/10/17 08/13/17 History 25mg tablet] Allergies Allergy/AdvReac Type Severity Reaction Status Date / Time azithromycin Allergy Intermediate Hives Verified 07/27/17 18:57 Discharge Plan - Patient Discharge Instructions ACTIVITY: Continue current activity DIET: continue same diet Patient Instructions: Pneumonia-Adult - Follow up Plan Follow up with: Michael Westfall MD [Primary Care Provider] - 08/13/17 Disposition: Home, Self-Senior Living Medications: Home Medications Medication Instructions Recorded Confirmed Type Lisinopril [Zestril 10mg Tab] 10 mg PO DAILY 08/03/17 08/13/17 History Metoprolol Tartrate [Lopressor 12.5 mg PO BID 08/10/17 08/13/17 History 25mg tablet] Prescriptions/Medication Reconciliation: New Ertapenem Sodium [Invanz 1gm ADV] 0.5 gm IV Q24H vial.port Continue Benzonatate [Benzonatate 100mg cap] 200 mg PO TID PRN #30 cap PRN Reason: Cough Lisinopril [Zestril 10mg Tab] 10 mg PO DAILY Discontinued Metoprolol Tartrate [Lopressor 25mg tablet] 25 mg PO BID No Action Metoprolol Tartrate [Lopressor 25mg tablet] 12.5 mg PO BID
--- NOTE | 2017-08-13 14:19 | P.DS_ITS ---
General - General Admission date: 08/03/17 Discharge date: 08/09/17 HPI HPI: Ms. Mcneill is a 81 year old female who presented to the office of [facility] today for her hospital f/u for influenza and pneumonia. Pt states that she still feels horrible and states that she will occasionally cough up sputum that is slightly yellow. She has had continued nasal congestion and chest tightness. She has been short of breath for 2 weeks and her oxygen today in the office ranged from 88-93% on RA. She has had a headache for 2 weeks, body aches for 2 weeks, and has been extremely fatigued. She was so fatigued this am she could hardly get up and move and she was afraid she was going to pass out. She has been nauseated. Her WBC has increased and she was admitted again for failing outpatient therapy for pneumonia. Objective Vital signs: Temp Pulse Resp BP Pulse Ox 97.9 F 54 L 20 115/52 92 L 08/09/17 12:00 08/09/17 12:00 08/09/17 12:00 08/09/17 12:08/09/17 12:00 Narrative: - Constitutional Comments: Does not appear to feel well - *Routine HEENT Exam Head: Present: normocephalic, atraumatic Eye: Present: EOMI, PERRL ENT: Present: mucous membranes dry - *Routine Neck Exam Present: supple, full ROM - *Routine Respiratory Exam Present: wheezes. Absent: crackles - *Routine Cardiovascular Exam Present: RRR - *Routine Abdominal Exam Present: soft, normoactive bowel sounds. Absent: tenderness - *Routine Extremities Exam Absent: edema - *Routine Skin Exam Present: intact - *Routine Neurological Exam Present: alert, oriented X3 Hospital Course Hospital Course: Her CXR showed a persistent but improving RLL pneumonia. She was started on ertapenem and nebs after failing outpatient therapy. The patient improved slowly throughout her stay. She did qualify for home O2. A swing bed admission was denied therefore she was stable to be discharged home and will come back to [facility] daily for Invanz. She will need a CXR on 08/12/17 and an office f/u on 08/13/17. DS: Diagnosis - Discharge Diagnosis (1) Pneumonia Status: Acute (2) Hypoxia Status: Acute (3) Leukocytosis Status: Acute (4) HTN (hypertension) Status: Chronic (5) Renal insufficiency Status: Acute Meds Home Medications Medication Instructions Recorded Confirmed Type Lisinopril [Zestril 10mg Tab] 10 mg PO DAILY 08/03/17 08/13/17 History Metoprolol Tartrate [Lopressor 12.5 mg PO BID 08/10/17 08/13/17 History 25mg tablet] Allergies Allergy/AdvReac Type Severity Reaction Status Date / Time azithromycin Allergy Intermediate Hives Verified 07/27/17 18:57 Discharge Plan - Patient Discharge Instructions ACTIVITY: Continue current activity DIET: continue same diet Patient Instructions: Pneumonia-Adult - Follow up Plan Follow up with: Michael Westfall MD [Primary Care Provider] - 08/13/17 Disposition: Home, Self-Long Term Medications: Home Medications Medication Instructions Recorded Confirmed Type Lisinopril [Zestril 10mg Tab] 10 mg PO DAILY 08/03/17 08/13/17 History Metoprolol Tartrate [Lopressor 12.5 mg PO BID 08/10/17 08/13/17 History 25mg tablet] Prescriptions/Medication Reconciliation: New Ertapenem Sodium [Invanz 1gm A
== END 2017-08-09 14:16 | disposition home or self-care (01) | DRG 195 ==
PROVIDERS: Admitting Provider Family Medicine; PCP Family Medicine; Visit Provider Family Medicine
DX: J18.9 Pneumonia, unspecified organism (principal); I48.91 Unspecified atrial fibrillation; I10 Essential (primary) hypertension; R09.02 Hypoxemia; N28.9 Disorder of kidney and ureter, unspecified; Z79.899 Other long term (current) drug therapy; Z88.3 Allergy status to other anti-infective agents
CPT/HCPCS: 36415; 71046; 80048; 80053; 85007; 85025; 86738; 87040; 94640; 94761; 97162; 97165; J1335

== ENCOUNTER 2017-08-10 09:10 | Outpatient (CLI) | payer MEDICARE, SELFPAY ==
[2017-08-10 09:35] VITALS: BP 141/47; PULSE 63; RESP 18; TEMP 36.2; O2SAT 96
[2017-08-10 10:10] VITALS: BP 135/78; PULSE 54; RESP 18
--- NOTE | 2017-08-10 10:47 | PC.NURSE ---
INVANZ INFUSION STARTED AT THIS TIME
== END 2017-08-10 10:20 | disposition home or self-care (01) ==
LOC: INF 09:11
PROVIDERS: PCP Family Medicine; Visit Provider Family Medicine
DX: J18.9 Pneumonia, unspecified organism (principal)
CPT/HCPCS: 96365; J1335

== ENCOUNTER 2017-08-11 08:45 | Outpatient (CLI) | payer MEDICARE, SELFPAY ==
[2017-08-11 09:03] VITALS: BMI 41.4; BMI 41.5
[2017-08-11 09:27] VITALS: BP 128/74; PULSE 49; RESP 18; TEMP 36.6; O2SAT 94
[2017-08-11 09:38] VITALS: BP 124/73; PULSE 48; RESP 18; TEMP 36.7; O2SAT 95
== END 2017-08-11 09:45 | disposition home or self-care (01) ==
LOC: INF 08:45
PROVIDERS: Family Provider Family Medicine; PCP Family Medicine; Visit Provider Family Medicine
DX: J18.9 Pneumonia, unspecified organism (principal)
CPT/HCPCS: 96365; J1335

== ENCOUNTER 2017-08-12 08:29 | Outpatient (CLI) | payer MEDICARE, SELFPAY ==
[2017-08-12 08:53] VITALS: BMI 41.5
[2017-08-12 09:07] VITALS: BP 119/65; PULSE 48; RESP 20; TEMP 36.5; O2SAT 95
[2017-08-12 09:43] VITALS: BP 108/64; PULSE 47; RESP 20; O2SAT 96
--- NOTE | 2017-08-12 10:20 | XR_ITS ---
XR chest 2V Ordering Physician: Michael Westfall MD Patient Age: 81 years: Female HISTORY: ITS.REASON: PNEUMONIAcough. Pneumonia TECHNIQUE: PA and lateral chest COMPARISON :August 07, 2017 CXR FINDINGS : Right chest: There is been overall further improvement at the right lung base. The previous small right pleural effusion has resolved. The slight coarsening markings at the right lower lobe persists but has shown improvement with overall improvement of right lower lobe infiltrate since 09/23 and 07/28/2017 CXR. Left chest:. Stable linear scarring left midlung. Ribs intact T-spine stable Cardiomegaly with very tortuous aorta extending to the right of the heart accounting for the density here. This anatomy was seen on January 2014 CT abdomen which included lung bases.. If there should be any progressive chest symptoms a may want to consider a postcontrast CT chest to further evaluate is very tortuous, ectatic and slightly dilated aorta. IMPRESSION. slight progressive improvement right lung base. The right pleural effusion is less evident and the minimal infiltrate at the right lower lobe has shown further regression. With only Scant residual infiltrate right lower lobe
== END 2017-08-12 09:40 | disposition home or self-care (01) ==
LOC: INF 08:29
PROVIDERS: Family Provider Family Medicine; PCP Family Medicine; Visit Provider Family Medicine
DX: J18.9 Pneumonia, unspecified organism (principal)
CPT/HCPCS: 71046; 96365; J1335

== ENCOUNTER 2017-08-13 08:43 | Outpatient (CLI) | payer MEDICARE, SELFPAY ==
[2017-08-13 08:57] VITALS: BP 147/68; PULSE 50; RESP 18; TEMP 36.3
--- NOTE | 2017-08-13 09:19 | PC.NURSE ---
0857 - INVANZ INFUSION STARTED AT THIS TIME.
[2017-08-13 09:27] VITALS: BP 153/72; PULSE 45; RESP 18
== END 2017-08-13 09:45 | disposition home or self-care (01) ==
LOC: INF 08:43
PROVIDERS: Family Provider Family Medicine; PCP Family Medicine; Visit Provider Family Medicine
DX: J18.9 Pneumonia, unspecified organism (principal)
CPT/HCPCS: 96365; J1335

== ENCOUNTER → 2017-08-27 14:46 | Outpatient (CLI) | payer MEDICARE, SELFPAY ==
--- NOTE | 2017-08-27 15:09 | NVE_ITS ---
Venous Exam Indications: 729.81 Swelling of limb. 729.5 Pain in limb. IMPRESSIONS 1. There is no evidence of significant Reflux. 2. Deep vein thrombosis involving the Left soleal calf vein Left lower extremity venous duplex evaluation. Doppler flow study including spectral analysis, color and mcnally scale imaging. Location: Vascular laboratory. Patient status: Outpatient. CRITICAL FINDINGS - Reported to: JOSEPH - Read back and verified. - 08/27/17 - 1540 - DVT Tables: Venous flow and imaging: + + + + Location Overall Flow properties + + + + Left common femoral Patent Normal phasicity; spontaneous; normal augmentation; compressible + + + + Left saphenofemoral Patent Compressible junction + + + + Left profunda femoral Patent Compressible + + + + Left femoral Patent Normal phasicity; spontaneous; normal augmentation; compressible + + + + Left greater saphenous Patent Normal phasicity; spontaneous; normal augmentation; compressible + + + + Left popliteal Patent Normal phasicity; spontaneous; normal augmentation; compressible + + + + Left posterior tibial Patent Compressible + + + + Left peroneal Patent Compressible + + + + Left gastrocnemius Patent Compressible + + + + Left soleal Partially occluded Partially compressible + + + + (Report amended ) Electronically signed by: Robert Her [id number]
== END ==
PROVIDERS: PCP Family Medicine; Visit Provider Family Medicine
DX: M79.605 Pain in left leg (principal)
CPT/HCPCS: 93971

== ENCOUNTER → 2017-08-31 10:44 | Outpatient (CLI) | payer MEDICARE, SELFPAY ==
--- NOTE | 2017-08-31 10:48 | FL_ITS ---
FL upper GI w air HISTORY: ITS.REASON: NAUSEA ORDERING PHYSICIAN: Michael Westfall MD PATIENT AGE: 82 years COMPARISON: None FINDINGS: There is mild spasm of the distal esophagus at the GE junction. This subsides during the exam. There is a small amount of reflux during the exam. No hernia apparent. No ulcer or mass evident. There has been a prior cholecystectomy. Proximal small bowel has an unremarkable appearance. FLUOROSCOPY TIME : 1 minute and 58 seconds. IMPRESSION: Mild esophageal spasm with minimal reflux Otherwise negative upper GI
== END ==
PROVIDERS: Family Provider Family Medicine; PCP Family Medicine; Visit Provider Family Medicine
DX: R11.0 Nausea (principal)
CPT/HCPCS: 74247

== ENCOUNTER → 2017-10-16 13:45 | Outpatient (CLI) | payer MEDICARE, SELFPAY | PROVIDERS: PCP Family Medicine; Visit Provider Family Medicine | DX: I10 Essential (primary) hypertension (principal); R40.0 Somnolence; G47.10 Hypersomnia, unspecified | CPT/HCPCS: 95806 ==